=== PATIENT | male | born 1960 | race Caucasian/White ===

== ENCOUNTER 2020-01-02 13:40 | Inpatient (IN) | payer BC ==
[2020-01-02 16:28] LABS: Absolute Lymphocytes (CBC) 0.7 K/uL (0.7-4.9); Basophils % 0.5 % (0-1.3); Hematocrit 42.3 % (39.6-49.0); Lymphocytes % 5.8 % (15.3-44.8); MPV 9.7 fL (7.6-11.3)
[2020-01-02] MEDS ORDERED: MEPERIDINE HCL 50 MG/ML ONE (16:34)
[2020-01-02] MEDS ORDERED: NA CHLORIDE 0.9% 500 ML ONE (16:34)
[2020-01-02 16:47] LABS: Albumin 3.7 g/dL (3.4-5.0); Bilirubin Direct 0.3 mg/dL (0-0.2); Bilirubin Total 1.1 mg/dL (0.2-1.0); Potassium 3.7 mmol/L (3.5-5.1); Protein, Total 7.6 g/dL (6.4-8.2)
--- NOTE | 2020-01-02 16:52 | RAD REPORT ---
EXAM DESCRIPTION: CTAbdomen Pelvis W Contrast - 01/02/2020 4:40 pm CLINICAL HISTORY: Abdominal pain. ABD PAIN COMPARISON: No comparisons TECHNIQUE: Biphasic CT imaging of the abdomen and pelvis was performed with 100 ml non-ionic IV cont rast. All CT scans are performed using dose optimization technique as appropriate and may include automated exposure control or mA/KV adjustment according to patient size. FINDINGS: The lung bases are clear. The liver, spleen, pancreas, adrenal glands and kidneys are within normal limits. No bowel obstruction, free air, free fluid or abscess. There is inflammatory changes surrounding braxton ral diverticula in the left lower quadrant sigmoid colon. This is likely diverticulitis. There is loc alized extraluminal air collection superior to the sigmoid colon measuring 3 x 2 cm, likely related t o diverticular perforation. No abscess is identified. The appendix is normal. Small fat containing um bilical hernia. No evidence of significant lymphadenopathy. No suspicious bony findings. IMPRESSION: Inflammatory changes in the left lower quadrant surrounding the sigmoid colon is most co mpatible with acute diverticulitis. There is localized extraluminal air collection measuring 3 x 2 cm in the pericolonic fat present. No abscess is seen. After appropriate therapy, followup colonoscopy would be advised to exclude the possibility of a mass in this region.
[2020-01-02] MEDS ORDERED: PIPER/TAZO/NS 3.375gm 3.375 GM/100 ML BAG ONE (17:15)
[2020-01-02 17:18] LABS: Blood Morphology Comment NOTED (NOT SEEN); Platelet Estimate ADEQ; Poikilocytosis 1+; Urine White Blood Cell Casts OK
--- NOTE | 2020-01-02 17:19 | ER ---
Nurse's Notes [facility] Name: Can Thompson Age: 59 yrs Sex: Male : 1960 Arrival Date: 01/02/2020 Time: 13:42 Bed 23 Private MD: Jose Peguero E Diagnosis: Diverticulitis of large intestine with perforation and abscess without bleeding-No abscess Presentation: 01/01 14:05 Chief complaint: Patient states: Severe lower back spasms, cramps on lower abdomen more ca1 on LLQ, started yesterday. Reports constipation, N/V. Coronavirus screen: Client denies travel out of the [place] in the last 14 days. At this time, the client does not indicate any symptoms associated with coronavirus-19. Ebola Screen: Patient negative for fever greater than or equal to 101.5 degrees Fahrenheit, and additional compatible Ebola Virus Disease symptoms Patient denies exposure to infectious person. Patient denies travel to an Ebola-affected area in the 21 days before illness onset. No symptoms or risks identified at this time. Initial Sepsis Screen: Does the patient meet any 2 criteria? No. Patient's initial sepsis screen is negative. Does the patient have a suspected source of infection? No. Patient's initial sepsis screen is negative. Risk Assessment: Do you want to hurt yourself or someone else? Patient reports no desire to harm self or others. Onset of symptoms was January 02, 2020. 14:05 Method Of Arrival: Ambulatory ca1 14:05 Acuity: GIUSEPPE 3 ca1 Triage Assessment: 14:08 General: Appears in no apparent distress. comfortable, Behavior is calm, cooperative, ca1 appropriate for age. Musculoskeletal: Circulation, motion, and sensation intact. Historical: - Allergies: 14:08 No Known Allergies; ca1 - Home Meds: 14:08 None [Active]; ca1 - PMHx: 14:08 None; ca1 - PSHx: 14:08 back surgery; ca1 - Immunization history:: Adult Immunizations up to date. - Social history:: Smoking status: Patient denies any tobacco usage or history of. - Family history:: not pertinent. - Hospitalizations: : No recent hospitalization is reported. Screenin:10 Abuse screen: Denies threats or abuse. Denies injuries from another. Nutritional ss screening: No deficits noted. Tuberculosis screening: Never had TB. Fall Risk None identified. Assessment: 16:10 General: Appears in no apparent distress. comfortable, Behavior is calm, cooperative, ss Denies fever, feeling ill, fatigue, chills. Pain: Complains of pain in low back and RLQ, LLQ Pain currently is 4 out of 10 on a pain scale. Quality of pain is described as aching, crampy, Pain began yesterday Is continuous. Neuro: Level of Consciousness is awake, alert, obeys commands, Oriented to person, place, time, situation, Materials Analyst are equal bilaterally Speech is normal, Facial symmetry appears normal. Cardiovascular: Capillary refill < 3 seconds is brisk in bilateral fingers. Respiratory: Airway is patent Respiratory effort is even, unlabored, Respiratory pattern is regular, symmetrical. GI: Patient currently denies diarrhea, nausea, vomiting. : Denies burning with urination, inability to void, urinary frequency. EENT: Nares Oral mucosa is moist. Derm: Skin is intact, is healthy with good turgor, Skin is dry, Skin is pink, warm \T\ dry. normal. Musculoskeletal: Circulation, motion, and sensation intact. Range of motion: intact in all extremities, Swelling absent. 16:31 Reassessment: Pt to CT now. ss 17:30 Reassessment: Patient appears in no apparent distress at this time. Patient and/or ss family updated on plan of care and expected duration. Pain level reassessed. Patient is alert, oriented x 3, equal unlabored respirations, skin warm/dry/pink. 18:18 Reassessment: Patient appears in no apparent distress at this time. Patient and/or ss family updated on plan of care and expected duration. Pain level reassessed. Patient is alert, oriented x 3, equal unlabored respirations, skin warm/dry/pink. report called to JENNY Steen. Vital Signs: 14:05 BP 114 / 72; Pulse 71; Resp 16 S; Temp 98.7(O); Pulse Ox 96% on R/A; Weight 111.13 kg ca1 (R); Height 6 ft. 0 in. (182.88 cm) (R); 16:49 BP 130 / 75; Pulse 77; Resp 16; Pulse Ox 99% on R/A; ss 14:05 Body Mass Index 33.23 (111.13 kg, 182.88 cm) ca1 ED Course: 13:42 Patient arrived in ED. ag5 13:45 Jose Peguero MD is Private Physician. ag5 14:08 Triage completed. ca1 14:08 Arm band placed on right wrist. ca1 15:50 Fei Newman MD is Attending Physician. rn 16:00 Inserted saline lock: 20 gauge in right antecubital area, using aseptic technique. ss Blood collected. 16:10 Patient has correct armband on for positive identification. Bed in low position. Call ss light in reach. 16:29 Gina Milner, JENNY is Primary Nurse. ss 16:41 CT Abd/Pelvis - IV Contrast Only In Process Unspecified. EDMS 17:16 Devin Weems MD is Hospitalizing Provider. rn 17:30 No provider procedures requiring assistance completed. Patient did not have IV access ss during this emergency room visit. Administered Medications: 16:29 Drug: Demerol 25 mg Route: IVP; Site: right antecubital; ss 17:03 Follow up: Response: No adverse reaction ss 16:29 Drug: NS 0.9% 500 ml Route: IV; Rate: bolus; Site: right antecubital; ss 17:30 Follow up: IV Status: Completed infusion ss 17:16 Drug: Zosyn 3.375 grams Route: IVPB; Infused Over: 60 mins; Site: right antecubital; ss 18:20 Follow up: IV Status: Completed infusion ss Outcome: 17:17 Decision to Hospitalize by Provider. rn 17:30 Admitted to Med/surg accompanied by nurse, via wheelchair, room 231, with chart, Report ss called to JENNY Steen 17:30 Condition: good 17:30 Instructed on the need for admit, Demonstrated understanding of instructions. 18:24 Patient left the ED. ss Signatures: Dispatcher [employer] EDMS Fei Newman MD MD rn Smirch, Shelby, RN RN ss Joanna Balnco RN RN [facility] Mery Maloney [facility]
--- NOTE | 2020-01-02 17:19 | EDPHYS ---
Physician Documentation [facility] Name: Can Thompson Age: 59 yrs Sex: Male : 1960 Arrival Date: 01/02/2020 Time: 13:42 Bed 23 Private MD: Jose Peguero E ED Physician Fei Newman HPI: 01/01 17:10 This 59 yrs old Male presents to ER via Ambulatory with complaints of Back rn Pain, Abdominal Cramping, Nausea/Vomiting/Diarrhea, Body Aches. 17:11 The patient presents with abdominal pain in the left lower quadrant. rn 17:12 Onset: The symptoms/episode began/occurred yesterday. The symptoms do not radiate. rn Associated signs and symptoms: Pertinent positives: constipation, nausea, Pertinent negatives: fever. The symptoms are described as achy, crampy. Modifying factors: The symptoms are alleviated by nothing, the symptoms are aggravated by touching the area. Severity of pain: At its worst the pain was moderate in the emergency department the pain is unchanged. The patient has not experienced similar symptoms in the past. The patient has not recently seen a physician. Reports lower abd pain, cramping, nausea, constipation, began yesterday, no trauma. . Historical: - Allergies: 14:08 No Known Allergies; ca1 - Home Meds: 14:08 None [Active]; ca1 - PMHx: 14:08 None; ca1 - PSHx: 14:08 back surgery; ca1 - Immunization history:: Adult Immunizations up to date. - Social history:: Smoking status: Patient denies any tobacco usage or history of. - Family history:: not pertinent. - Hospitalizations: : No recent hospitalization is reported. ROS: 17:12 Constitutional: Negative for fever, chills, and weight loss, Eyes: Negative for injury, rn pain, redness, and discharge, Cardiovascular: Negative for chest pain, palpitations, and edema, Respiratory: Negative for shortness of breath, cough, wheezing, and pleuritic chest pain, Abdomen/GI: + abd pain, nausea, constipation MS/Extremity: Negative for injury and deformity, Skin: Negative for injury, rash, and discoloration, Neuro: Negative for headache, weakness, numbness, tingling, and seizure. Exam: 17:14 Constitutional: This is a well developed, well nourished patient who is awake, alert, rn appears uncomfortable Head/Face: Normocephalic, atraumatic. ENT: MMM Cardiovascular: Regular rate and rhythm. No pulse deficits. Respiratory: No increased work of breathing, no retractions or nasal flaring. Abdomen/GI: soft, + mild LLQ tenderness, no rebound, + small periumbilical hernia that is easily reducible, no skin color change MS/ Extremity: Pulses equal, no cyanosis. Neurovascular intact. Full, normal range of motion. Equal circumference. Neuro: Awake and alert, GCS 15 Vital Signs: 14:05 BP 114 / 72; Pulse 71; Resp 16 S; Temp 98.7(O); Pulse Ox 96% on R/A; Weight 111.13 kg ca1 (R); Height 6 ft. 0 in. (182.88 cm) (R); 16:49 BP 130 / 75; Pulse 77; Resp 16; Pulse Ox 99% on R/A; ss 14:05 Body Mass Index 33.23 (111.13 kg, 182.88 cm) ca1 MDM: 15:50 Patient medically screened. rn 17:14 Differential diagnosis: appendicitis, bowel obstruction, diverticulitis, non-specific rn abd pain. Data reviewed: vital signs, nurses notes, lab test result(s), radiologic studies, CT scan, and as a result, I will admit patient. Counseling: I had a detailed discussion with the patient and/or guardian regarding: the historical points, exam findings, and any diagnostic results supporting the discharge/admit diagnosis, lab results, radiology results, the need for further work-up and treatment in the hospital. Response to treatment: the patient's symptoms have mildly improved after treatment. Admission orders: after a detailed discussion of the patient's condition and case, the admit orders are written by me. ED course: Consulted with Saskia Mckeon regarding ct finding of diverticulitis with extraluminal air in fat, recommends hospitalist admission and abx, NPO.. 01/01 15:57 Order name: Basic Metabolic Panel; Complete Time: 16:48 rn 01/01 15:57 Order name: CBC with Diff; Complete Time: 17:50 rn 01/01 15:57 Order name: Hepatic Function; Complete Time: 16:48 rn 01/01 15:57 Order name: Lipase; Complete Time: 16:48 rn 01/01 16:51 Order name: CREATININE WHOLE BLOOD; Complete Time: 17:00 EDVT 01/01 17:18 Order name: CBC Smear Scan; Complete Time: 17:50 EDMS 01/01 17:32 Order name: Urinalysis EDVT 01/01 17:32 Order name: CBC with Automated Diff EDVT 01/01 17:32 Order name: CBC with Automated Diff EDVT 01/01 17:32 Order name: Comprehensive Metabolic Panel EDVT 01/01 17:32 Order name: Comprehensive Metabolic Panel EDVT 01/01 17:32 Order name: Magnesium EDVT 01/01 17:32 Order name: Magnesium EDVT 01/01 17:32 Order name: Phosphorus EDVT 01/01 15:57 Order name: IV Saline Lock; Complete Time: 16:20 rn 01/01 15:57 Order name: Labs collected and sent; Complete Time: 16:20 rn 01/01 15:57 Order name: CT Abd/Pelvis - IV Contrast Only; Complete Time: 17:00 rn 01/01 17:32 Order name: CONS Physician Consult EDVT 01/01 17:32 Order name: NPO EDVT 01/01 17:32 Order name: Phosphorus EDVT Administered Medications: 16:29 Drug: Demerol 25 mg Route: IVP; Site: right antecubital; ss 17:03 Follow up: Response: No adverse reaction ss 16:29 Drug: NS 0.9% 500 ml Route: IV; Rate: bolus; Site: right antecubital; ss 17:30 Follow up: IV Status: Completed infusion ss 17:16 Drug: Zosyn 3.375 grams Route: IVPB; Infused Over: 60 mins; Site: right antecubital; ss 18:20 Follow up: IV Status: Completed infusion ss Disposition: 01/02/20 17:17 Hospitalization ordered by Devin Weems for Inpatient Admission. Preliminary diagnosis is Diverticulitis of large intestine with perforation and abscess without bleeding - No abscess. - Bed requested for Telemetry/MedSurg (Inpatient). - Status is Inpatient Admission. ss - Condition is Stable. - Problem is new. - Symptoms have improved. Signatures: Dispatcher [facility] Martha Garcia RN RN dw Nieto, Roman, MD MD rn Smirch, Shelby, RN RN ss Attema, Lee, DOOR TO DOOR SELLING DISTRIBUTOR-C DOOR TO DOOR SELLING DISTRIBUTOR-Cla1 Joanna Blanco, RN RN ca1 Corrections: (The following items were deleted from the chart) 17:14 17:12 Constitutional: Negative for fever, chills, and weight loss, Eyes: Negative for rn injury, pain, redness, and discharge, Cardiovascular: Negative for chest pain, palpitations, and edema, Respiratory: Negative for shortness of breath, cough, wheezing, and pleuritic chest pain, Abdomen/GI: + abd pain, nausea, constipation MS/Extremity: Negative for injury and deformity, Skin: Negative for injury, rash, and discoloration, Neuro: Negative for headache, weakness, numbness, tingling, and seizure, rn 17:57 17:17 Hospitalization Ordered by Devin Weems MD for Inpatient Admission. Preliminary dw diagnosis is Diverticulitis of large intestine with perforation and abscess without bleeding - No abscess. Bed requested for Telemetry/MedSurg (Inpatient). Status is Inpatient Admission. Condition is Stable. Problem is new. Symptoms have improved. rn 18:24 17:57 01/02/2020 17:17 Hospitalization Ordered by Devin Weems MD for Inpatient ss Admission. Preliminary diagnosis is Diverticulitis of large intestine with perforation and abscess without bleeding - No abscess. Bed requested for Telemetry/MedSurg (Inpatient). Status is Inpatient Admission. Condition is Stable. Problem is new. Symptoms have improved. dw
[2020-01-02] MEDS ORDERED: ACETAMINOPHEN 500 MG TAB PO PRN (17:29)
[2020-01-02] MEDS ORDERED: SODIUM CHLORIDE 0.9% 10ML INJ IV PRN (17:31)
--- NOTE | 2020-01-02 17:39 | P.HP ---
Certification for Inpatient Patient admitted to: Inpatient With expected LOS: >2 Midnights Practitioner: I am a practitioner with admitting privileges, knowledge of patient current condition, hospital course, and medical plan of care. 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 Denies any fever or chills. Abdominal pain is located lower abdomen cramping type of pain. Associated with nausea and occasional diarrhea. Did not have any history of diverticulitis in the past. Never had colonoscopy. Patient was assessed in the ER and was found to have diverticulitis with microperforation and was admitted for further management . . Home medications list reviewed: Yes - Past Medical/Surgical History Past Medical History: Reviewed- Non-Contributory Past Surgical History: Reviewed- Non-Contributory - Family History Family History: Reviewed- Non-Contributory - Social History Smoking Status: Never smoker Review of Systems 10-point ROS is otherwise unremarkable Physical Examination - Vital Signs Temperature: 98.2 F Blood Pressure: 146/76 Pulse: 76 Respirations: 18 - Physical Exam General: Alert, In no apparent distress, Obese HEENT: Atraumatic, Normocephalic Neck: Supple Respiratory: Clear to auscultation bilaterally Cardiovascular: Regular rate/rhythm, Normal S1 S2 Capillary refill: <2 Seconds Gastrointestinal: W/out hepatosplenomegaly, Tenderness Musculoskeletal: No clubbing, No swelling Integumentary: No rashes, No breakdown Neurological: Normal speech, Normal strength at 5/5 x4 extr Lymphatics: No axilla or inguinal lymphadenopathy - Studies Laboratory Data (last 24 hrs) 01/02/20 16:18: WBC 12.3 H, Hgb 14.2, Hct 42.3, Plt Count 218 01/02/20 16:18: Sodium 139, Potassium 3.7, BUN 20 H, Creatinine 1.16, Glucose 115 H, Total Bilirubin 1.1 H, AST 35, ALT 42, Alkaline Phosphatase 99, Lipase 72 L Assessment and Plan - Problems (Diagnosis) (1) Diverticulitis of colon with perforation Current Visit: Yes Status: Acute (2) Leukocytosis Current Visit: Yes Status: Acute (3) Acute renal insufficiency Current Visit: Yes Status: Acute - Plan Diverticulitis with microperforation Leukocytosis Acute renal insufficiency Plan Monitor closely under telemetry start on pain medication and IV antibiotics will get cultures Surgery consult with Dr. Mckeon Keep NPO for now IV hydration will monitor renal parameters Monitor CBC daily GI/DVT prophylaxis Advanced directives full code - Advance Directives Does patient have a Living Will: Yes Does patient have a Durable POA for Healthcare: Yes Time Spent Managing Pts Care (In Minutes): 45
[2020-01-02] MEDS: ENOXAPARIN 40 MG/0.4 ML SQ SCH (18:31)
[2020-01-02] MEDS: D5 0.45 NS 1,000 ML IV SCH (18:32)
[2020-01-02 19:29] VITALS: BMI 33.9
[2020-01-02] MEDS: MORPHINE 2 MG/ML SYR IV PRN (21:01)
[2020-01-02] MEDS: PANTOPRAZOLE 40 MG INJ IVP SCH (21:01)
[2020-01-02 22:45] LABS: Urine Appearance CLEAR; Urine Bilirubin NEGATIVE (NEG); Urine Blood NEGATIVE (NEG); Urine Color YELLOW; Urine Glucose NEGATIVE (NEG); Urine Protein TRACE (NEG); Urine Specific Gravity >=1.030 (1.005-1.030); Urine pH 5.5 (5.0-7.0)
[2020-01-02 22:47] LABS: Urine Microscopic Reflex ORDER UMIC
[2020-01-02 23:11] LABS: Urine Amorphous Sediment 2+ /HPF (NONE SEEN); Urine Bacteria <20 /HPF (NONE SEEN); Urine Culture Reflex Order NOT NEEDED; Urine RBC NONE SEEN /HPF (NONE SEEN)
[2020-01-03] MEDS ORDERED: PIPER/TAZO/NS 3.375gm 3.375 GM/100 ML BAG IVPB SCH (01:00)
[2020-01-03] MEDS ORDERED: PIPER/TAZO/NS 3.375gm 3.375 GM/100 ML BAG ONE (01:28)
[2020-01-03] MEDS: D5 0.45 NS 1,000 ML IV SCH ×2 (05:20→13:53)
[2020-01-03 06:40] LABS: Absolute Lymphocytes (CBC) 0.9 K/uL (0.7-4.9); Basophils % 0.4 % (0-1.3); Hematocrit 37.2 % (39.6-49.0); Lymphocytes % 8.1 % (15.3-44.8); RBC Red Blood Cell Count 4.35 M/uL (4.33-5.43)
[2020-01-03 06:44] LABS: Albumin 3.1 g/dL (3.4-5.0); Magnesium 2.2 mg/dL (1.8-2.4); Phosphorus 2.3 mg/dL (2.5-4.9); Potassium 3.5 mmol/L (3.5-5.1); Protein, Total 6.6 g/dL (6.4-8.2)
[2020-01-03] MEDS: PIPER/TAZO/NS 3.375gm 3.375 GM/100 ML BAG IVPB SCH ×2 (08:24→17:13)
[2020-01-03] MEDS: ENOXAPARIN 40 MG/0.4 ML SQ SCH (08:25)
[2020-01-03] MEDS: PANTOPRAZOLE 40 MG INJ IVP SCH ×2 (08:26→21:23)
[2020-01-03] MEDS ORDERED: POTASSIUM PHOS IN 0.9 % NACL 15 MMOL/250 ML BAG IV ONE (09:00)
--- NOTE | 2020-01-03 11:12 | P.PN ---
Subjective Date of Service: 01/03/20 Chief Complaint: Abdominal pain Subjective: No new changes, Other (Pain is still present but better than yesterday Denies any nausea vomiting Afebrile) Review of Systems 10-point ROS is otherwise unremarkable Physical Examination - Vital Signs Temperature: 98 F Blood Pressure: 114/59 Pulse: 81 Respirations: 16 Pulse Ox (%): 95 - Physical Exam General: Alert, In no apparent distress, Oriented x3 HEENT: Atraumatic, Normocephalic Neck: Supple, 2+ carotid pulse no bruit Respiratory: Clear to auscultation bilaterally, Normal air movement Cardiovascular: Regular rate/rhythm, Normal S1 S2 Capillary refill: <2 Seconds Gastrointestinal: Non-distended, Other (Lower Abdominal Tenderness +), Tenderness Musculoskeletal: No clubbing, No swelling Integumentary: No rashes Neurological: Normal speech, Normal strength at 5/5 x4 extr Lymphatics: No axilla or inguinal lymphadenopathy - Studies Laboratory Data (last 24 hrs) 01/02/20 16:18: WBC 12.3 H, Hgb 14.2, Hct 42.3, Plt Count 218 01/02/20 16:18: Sodium 139, Potassium 3.7, BUN 20 H, Creatinine 1.16, Glucose 115 H, Total Bilirubin 1.1 H, AST 35, ALT 42, Alkaline Phosphatase 99, Lipase 72 L Assessment & Plan - Problems (Diagnosis) (1) Diverticulitis of colon with perforation Current Visit: Yes Status: Acute (2) Leukocytosis Current Visit: Yes Status: Acute (3) Acute renal insufficiency Current Visit: Yes Status: Acute Physician Review Additional Text: Diverticulitis with microperforation Leukocytosis Acute renal insufficiency Plan Monitor closely under telemetry Pain controlled well Continue IV antibiotics Cultures pending Surgery consult with Dr. Mckeon Keep NPO for now IV hydration monitor renal parameters Monitor CBC daily GI/DVT prophylaxis Advanced directives full code Disposition : Monitor closely Awaiting surgical input Possible Dc home in a.m. Need outpatient follow up GI for colonoscopy down the line Discuss about diet modification Time Spent Managing Pts Care (In Minutes): 42
--- NOTE | 2020-01-03 12:10 | CON ---
Date of Consultation: 01/03/2020 Reason For Service: Diverticulitis with microperforation. History Of Present Illness: This is a case of a 59-year-old patient comes to us with the left lower quadrant pain associated with nausea and vomiting and diarrhea since 1 day of duration. It got worse to the point he came to the ER. When he was seen in the ER, he was diagnosed with diverticulitis an d microperforation. No free air in the abdomen, but there were pockets of air near the colon. He do es not remember any dysuria, hematuria, hematochezia, melena. He denies any recent traveling out of the country. Denies any family member sick at home. The patient has no previous colonoscopies. Review of Systems: Ten points otherwise unremarkable. Medical History: None. Family History: None. Social History: He does not smoke. He does not drink alcohol. Family History: Noncontributory. Physical Examination: General: The patient is awake, alert. HEENT: Pupils are equal and reactive, anicteric. Neck: Supple. Chest: Clear. Abdomen: Soft and depressible. Left lower quadrant tenderness. Rectal/genitalia: Deferred. Extremities: Good capillary refill. Laboratory Data: Blood work shows WBC count of 11, hemoglobin of 12.9, platelets of 188, potassium 3 .5, and glucose 129. CAT scan of the abdomen and pelvis interpreted by Dr. Sandoval as inflammatory chanel ges in the left lower quadrant surrounding the sigmoid colon, most compatible with acute diverticulit is. There is localized extraluminal air collection measuring about 3 x 2 cm in the pericolonic fat. No abscess seen. Assessment And Plan: This is a 59-year-old patient with apparently some inflammation of the colon, m ost likely diverticulitis by CAT scan with a local fluid collection. No free air in the diaphragm. The patient will be n.p.o., IV fluid. He understand and fully explained today for about the last daisy r the pros and cons. We can go for surgery right now, do a bowel resection, colostomy. Obviously, shameka velasquez does not like that route, but he understands that it might happen any moment. If not that route, en we are going to have to do a treatment with IV antibiotics and bowel rest for the next 5-7 days. We are going to get Infectious Disease to see how long we are going to have to utilize this route. Shameka velasquez understands that even though he is doing well during this condition and may not need surgery, he st ill has to have his colonoscopy in the future. He most likely will have to have his segment removed electively if we do not have to do it emergently. He understands the gravity of the situation and he will cooperate with absolute bowel rest. MICHELLE/MENDOZA Voice ID: [id number] Report ID: [id number]
[2020-01-03] MEDS: MORPHINE 2 MG/ML SYR IV PRN (21:24)
[2020-01-04] MEDS: PIPER/TAZO/NS 3.375gm 3.375 GM/100 ML BAG IVPB SCH ×3 (00:42→17:02)
[2020-01-04] MEDS: D5 0.45 NS 1,000 ML IV SCH ×4 (06:04→21:26)
[2020-01-04 06:12] LABS: Phosphorus 2.5 mg/dL (2.5-4.9); Potassium 3.4 mmol/L (3.5-5.1)
[2020-01-04] MEDS ORDERED: POTASSIUM PHOS IN 0.9 % NACL 15 MMOL/250 ML BAG IV ONE (09:00)
[2020-01-04] MEDS ORDERED: KCL 20 MEQ/100 mL IVPB 20 MEQ/100 ML BAG IV SCH (09:00)
--- NOTE | 2020-01-04 09:03 | RAD REPORT ---
EXAM DESCRIPTION: RAD - Abdomen W Erect - 01/04/2020 8:49 am CLINICAL HISTORY: diverticulitis COMPARISON: Abdomen Pelvis W Contrast dated 01/02/2020 TECHNIQUE: Supine and upright views of the abdomen were obtained. FINDINGS: No distant free air seen. No pneumatosis. No dilated large or small bowel identified. CT i maging showed small extraluminal air collection in the left lower quadrant. This collection is not cl early distinguishable from air in bowel. No evidence for an enlarging intraabdominal free air collect ion. Phleboliths are identified. IMPRESSION: No distant free air seen. No evidence for enlarging extraluminal air collection in the left lower quadrant.
--- NOTE | 2020-01-04 09:44 | PN ---
Date of Progress Note: 01/04/2020 Reason For Service: Diverticulitis with microperforation. Subjective: Patient feels good. No shortness of breath. No chest pain. No fever. He feels better today. Objective: Abdomen: With no peritonitis. Laboratory Data: Blood work shows WBC count of 11, hemoglobin of 12.9 and chloride is 108. Abdomina l x-ray has been done as we speak at this moment. We do not have the official result yet. The reaso n we do an x-ray is to make sure there is no free air under the diaphragm. Plan: Continue with antibiotics. Continue bowel rest. ID consult. MICHELLE/MENDOZA Voice ID: [id number] Report ID: [id number]
[2020-01-04] MEDS: PANTOPRAZOLE 40 MG INJ IVP SCH ×2 (09:51→21:18)
[2020-01-04] MEDS: ENOXAPARIN 40 MG/0.4 ML SQ SCH (09:51)
--- NOTE | 2020-01-04 10:28 | P.CNS ---
Date of Consult: 01/04/20 Subjective: Patient is a 59-year-old male who presents with abdominal pain, nausea, vomiting and diarrhea that started this past Thursday. Patient reports that he has not had a bowel movement a few days so he took Ex-Lax and his abdominal pain and nausea worsened. Patient found to have diverticulitis which I have been consulted for. Past medical/surgical history: Noncontributory Family history: Noncontributory in Social history: Reports dips tobacco daily Allergies No Known Allergies Allergy (Verified 01/02/20 19:39) Active Medications Acetaminophen (Tylenol -Extra Strength) 500 mg PO Q4HP PRN PRN Reason: TEMP > 100' F Stop: 02/01/20 17:30 Enoxaparin Sodium (Lovenox 40 Mg Inj) 40 mg SQ DAILY SEA Stop: 02/01/20 18:01 Last Admin: 01/04/20 09:51 Dose: 40 mg Documented by: Dextrose/Sodium Chloride (Dextrose 5% O.45% Saline) 1,000 mls @ 100 mls/hr IV .Q10H SEA Stop: 02/01/20 18:01 Last Admin: 01/04/20 06:04 Dose: 1,000 mls Documented by: Piperacillin Sod/Tazobactam Sod (Zosyn 3.375 Gm/100 Ml Ns Ivpb) 3.375 gm in 100 mls @ 100 mls/hr IVPB Q8HR SEA; Protocol Stop: 02/02/20 09:01 Last Admin: 01/04/20 09:50 Dose: 100 mls Documented by: Potassium Phosphate (Potassium Phos 15 Mmol/250 Ml Ns) 15 mmol in 250 mls @ 62.5 mls/hr IV 1X ONE; Protocol Stop: 01/04/20 12:59 Last Admin: 01/04/20 09:50 Dose: 250 mls Documented by: Potassium Chloride (Kcl 20 Meq/100 Ml Ivpb (Premix)) 20 meq in 100 mls @ 50 mls/hr IV 1X SEA; Protocol Stop: 01/04/20 10:59 Last Admin: 01/04/20 09:50 Dose: 100 mls Documented by: Morphine Sulfate (Morphine Sulfate) 2 mg IV Q4H PRN PRN Reason: Pain scale 5-7 (Moderate) Stop: 02/01/20 17:32 Last Admin: 01/03/20 21:24 Dose: 2 mg Documented by: Pantoprazole Sodium (Protonix Inj) 40 mg IVP Q12HR SEA; Protocol Stop: 02/01/20 21:01 Last Admin: 01/04/20 09:51 Dose: 40 mg Documented by: Sodium Chloride (Normal Saline Flush) 10 ml IV BID SEA Stop: 02/01/20 21:01 Last Admin: 01/04/20 09:51 Dose: 10 ml Documented by: Sodium Chloride (Sodium Chloride 10 Ml Inj) 10 ml IV UD PRN PRN Reason: Diluant Stop: 02/01/20 17:32 ROS: CV: Denies chest pain RESP: Denies shortness of breath and cough : Denies dysuria GI: Denies nausea, vomiting and diarrhea, reports abdominal pain improving Objective: Temp Pulse Resp BP Pulse Ox 97.0 F 75 18 128/69 97 01/04/20 08:00 01/04/20 08:00 01/04/20 08:00 01/04/20 08:00 01/04/20 08:00 Labs: Sodium 139, potassium 3.4, BUN 11, creatinine 0.93, albumin 3.1, they BC 11, hemoglobin 12.9, hematocrit 37.[address] 01/01: EXAM DESCRIPTION: CTAbdomen Pelvis W Contrast - 01/02/2020 4:40 pm CLINICAL HISTORY: Abdominal pain. ABD PAIN COMPARISON: No comparisons TECHNIQUE: Biphasic CT imaging of the abdomen and pelvis was performed with 100 ml non-ionic IV contrast. All CT scans are performed using dose optimization technique as appropriate and may include automated exposure control or mA/KV adjustment according to patient size. FINDINGS: The lung bases are clear. The liver, spleen, pancreas, adrenal glands and kidneys are within normal limits. No bowel obstruction, free air, free fluid or abscess. There is inflammatory changes surrounding several diverticula in the left lower quadrant sigmoid colon. This is likely diverticulitis. There is localized extraluminal air collection superior to the sigmoid colon measuring 3 x 2 cm, likely related to diverticular perforation. No abscess is identified. The appendix is normal. Small fat containing umbilical hernia. No evidence of significant lymphadenopathy. No suspicious bony findings. IMPRESSION: Inflammatory changes in the left lower quadrant surrounding the sigmoid colon is most compatible with acute diverticulitis. There is localized extraluminal air collection measuring 3 x 2 cm in the pericolonic fat present. No abscess is seen. After appropriate therapy, followup colonoscopy would be advised to exclude the possibility of a mass in this region. ROS: General: Awake, alert, oriented CV: S1,S2 RESP: Good breath sounds ABD: Distended, nontender, bowel sounds present Extremities: no edema Assessment and plan: Leukocytosis Diverticulitis, Zosyn day 2 Will add Flagyl Recommend to continue Zosyn and Flagyl for total of 10 days Will continue to monitor Thank you for consult Patient discussed with Dr. Nunez
--- NOTE | 2020-01-04 11:56 | P.PN ---
Subjective Date of Service: 01/04/20 Chief Complaint: Abdominal pain Subjective: No new changes, Other (Still having lower abdominal pain no nausea vomiting Denies any fever or chills) Review of Systems 10-point ROS is otherwise unremarkable Physical Examination - Vital Signs Temperature: 97.0 F Blood Pressure: 128/69 Pulse: 75 Respirations: 18 Pulse Ox (%): 97 - Physical Exam General: Alert, In no apparent distress, Oriented x3, Obese HEENT: Atraumatic, Normocephalic Neck: Supple Respiratory: Clear to auscultation bilaterally, Normal air movement Cardiovascular: Normal pulses, Regular rate/rhythm, Normal S1 S2 Capillary refill: <2 Seconds Gastrointestinal: Soft and benign, W/out hepatosplenomegaly Musculoskeletal: No clubbing, No swelling Integumentary: No rashes Neurological: Normal speech, Normal strength at 5/5 x4 extr Lymphatics: No axilla or inguinal lymphadenopathy Assessment & Plan - Problems (Diagnosis) (1) Diverticulitis of colon with perforation Current Visit: Yes Status: Acute (2) Leukocytosis Current Visit: Yes Status: Acute (3) Acute renal insufficiency Current Visit: Yes Status: Acute Physician Review Additional Text: Diverticulitis with microperforation Leukocytosis Acute renal insufficiency Hypokalemia Plan Monitor closely under telemetry Pain controlled well Continue IV antibiotics ID consulted Cultures pending Appreciate Surgery consult with Dr. Mckeon Keep NPO for now IV hydration monitor renal parameters Replace electrolytes Monitor CBC daily GI/DVT prophylaxis Advanced directives full code Disposition : Monitor closely Awaiting surgical input Need outpatient follow up GI for colonoscopy down the line Discuss about diet modification Time Spent Managing Pts Care (In Minutes): 42
[2020-01-04] MEDS: METRONIDAZOLE 500mg IVPB 500 MG/100 ML BAG IV SCH (17:02)
[2020-01-05] MEDS: METRONIDAZOLE 500mg IVPB 500 MG/100 ML BAG IV SCH ×3 (01:09→16:31)
[2020-01-05] MEDS: PIPER/TAZO/NS 3.375gm 3.375 GM/100 ML BAG IVPB SCH ×3 (01:09→16:29)
[2020-01-05] MEDS: D5 0.45 NS 1,000 ML IV SCH ×2 (06:00→20:28)
[2020-01-05 06:28] LABS: BUN Blood Urea Nitrogen 11 mg/dL (7-18); Bicarbonate 24 mmol/L (21-32); Glucose Level 91 mg/dL (74-106); Magnesium 2.4 mg/dL (1.8-2.4); Phosphorus 3.2 mg/dL (2.5-4.9); Potassium 3.5 mmol/L (3.5-5.1); Sodium Level 141 mmol/L (136-145)
[2020-01-05] MEDS: ENOXAPARIN 40 MG/0.4 ML SQ SCH (09:00)
[2020-01-05] MEDS: PANTOPRAZOLE 40 MG INJ IVP SCH ×2 (09:00→20:28)
[2020-01-05] MEDS ORDERED: POTASSIUM CL SA 10 MEQ TAB PO ONE (09:00)
[2020-01-05 09:13] LABS: Absolute Lymphocytes (CBC) 1.1 K/uL (0.7-4.9); Basophils % 0.6 % (0-1.3); Hematocrit 41.1 % (39.6-49.0); Lymphocytes % 16.8 % (15.3-44.8); MPV 9.7 fL (7.6-11.3); RBC Red Blood Cell Count 4.88 M/uL (4.33-5.43)
[2020-01-05] MEDS ORDERED: KCL 20 MEQ/100 mL IVPB 20 MEQ/100 ML BAG IV SCH (10:00)
--- NOTE | 2020-01-05 10:53 | P.PN ---
Subjective Date of Service: 01/05/20 Chief Complaint: Abdominal pain Subjective: No new changes, Improving, Other (Had a bowel movement Ambulating well) Review of Systems 10-point ROS is otherwise unremarkable Physical Examination - Vital Signs Temperature: 97.1 F Blood Pressure: 126/75 Pulse: 61 Respirations: 17 Pulse Ox (%): 95 - Physical Exam General: Alert, In no apparent distress, Obese HEENT: Atraumatic, Normocephalic Neck: Supple Respiratory: Clear to auscultation bilaterally, Normal air movement Cardiovascular: Regular rate/rhythm, Normal S1 S2 Capillary refill: <2 Seconds Gastrointestinal: Soft and benign, Other (Tenderness improved ,BS + ) Musculoskeletal: No clubbing, No swelling Integumentary: No rashes, No breakdown Neurological: Normal speech, Normal strength at 5/5 x4 extr Lymphatics: No axilla or inguinal lymphadenopathy Assessment & Plan - Problems (Diagnosis) (1) Diverticulitis of colon with perforation Current Visit: Yes Status: Acute (2) Leukocytosis Current Visit: Yes Status: Acute (3) Acute renal insufficiency Current Visit: Yes Status: Acute Physician Review Additional Text: Diverticulitis with perforation Leukocytosis Acute renal insufficiency Hypokalemia Plan Monitor closely under telemetry Pain controlled well Continue IV antibiotics ID consult appreciated Cultures negative sofar Appreciate Surgery consult with Dr. Mckeon Start on clear liquid diet IV hydration monitor renal parameters Replace electrolytes Leukocytosis normalized Monitor CBC daily GI/DVT prophylaxis Advanced directives full code Disposition : Monitor closely Continue IV antibiotics for now Need outpatient follow up GI for colonoscopy down the line Discuss about diet modification Time Spent Managing Pts Care (In Minutes): 43
--- NOTE | 2020-01-05 13:31 | P.PN ---
Date of Service: 01/05/20 Subjective: Patient is a 59-year-old male who presents with abdominal pain, nausea, vomiting and diarrhea that started this past Thursday. Patient reports that he has not had a bowel movement a few days so he took Ex-Lax and his abdominal pain and nausea worsened. Patient found to have diverticulitis which I have been consulted for. Past medical/surgical history: Noncontributory Family history: Noncontributory in Social history: Reports dips tobacco daily Allergies No Known Allergies Allergy (Verified 01/02/20 19:39) Active Medications Acetaminophen (Tylenol -Extra Strength) 500 mg PO Q4HP PRN PRN Reason: TEMP > 100' F Stop: 02/01/20 17:30 Enoxaparin Sodium (Lovenox 40 Mg Inj) 40 mg SQ DAILY SEA Stop: 02/01/20 18:01 Last Admin: 01/04/20 09:51 Dose: 40 mg Documented by: Dextrose/Sodium Chloride (Dextrose 5% O.45% Saline) 1,000 mls @ 100 mls/hr IV .Q10H SEA Stop: 02/01/20 18:01 Last Admin: 01/04/20 06:04 Dose: 1,000 mls Documented by: Piperacillin Sod/Tazobactam Sod (Zosyn 3.375 Gm/100 Ml Ns Ivpb) 3.375 gm in 100 mls @ 100 mls/hr IVPB Q8HR SEA; Protocol Stop: 02/02/20 09:01 Last Admin: 01/04/20 09:50 Dose: 100 mls Documented by: Potassium Phosphate (Potassium Phos 15 Mmol/250 Ml Ns) 15 mmol in 250 mls @ 62.5 mls/hr IV 1X ONE; Protocol Stop: 01/04/20 12:59 Last Admin: 01/04/20 09:50 Dose: 250 mls Documented by: Potassium Chloride (Kcl 20 Meq/100 Ml Ivpb (Premix)) 20 meq in 100 mls @ 50 mls/hr IV 1X SEA; Protocol Stop: 01/04/20 10:59 Last Admin: 01/04/20 09:50 Dose: 100 mls Documented by: Morphine Sulfate (Morphine Sulfate) 2 mg IV Q4H PRN PRN Reason: Pain scale 5-7 (Moderate) Stop: 02/01/20 17:32 Last Admin: 01/03/20 21:24 Dose: 2 mg Documented by: Pantoprazole Sodium (Protonix Inj) 40 mg IVP Q12HR SEA; Protocol Stop: 02/01/20 21:01 Last Admin: 01/04/20 09:51 Dose: 40 mg Documented by: Sodium Chloride (Normal Saline Flush) 10 ml IV BID SEA Stop: 02/01/20 21:01 Last Admin: 01/04/20 09:51 Dose: 10 ml Documented by: Sodium Chloride (Sodium Chloride 10 Ml Inj) 10 ml IV UD PRN PRN Reason: Diluant Stop: 02/01/20 17:32 ROS: CV: Denies chest pain RESP: Denies shortness of breath and cough : Denies dysuria GI: Denies nausea, vomiting and diarrhea, reports abdominal pain improving Objective: Temp Pulse Resp BP Pulse Ox 97.7 F 64 17 146/79 H 97 01/05/20 12:00 01/05/20 12:00 01/05/20 12:00 01/05/20 12:00 01/05/20 12:00 Labs: Sodium 141, potassium 3.5, BUN 11, creatinine 0.80, albumin 3.1, WBC 6.5, hemoglobin 14.4, hematocrit 41.[address] 01/01: EXAM DESCRIPTION: CTAbdomen Pelvis W Contrast - 01/02/2020 4:40 pm CLINICAL HISTORY: Abdominal pain. ABD PAIN COMPARISON: No comparisons TECHNIQUE: Biphasic CT imaging of the abdomen and pelvis was performed with 100 ml non-ionic IV contrast. All CT scans are performed using dose optimization technique as appropriate and may include automated exposure control or mA/KV adjustment according to patient size. FINDINGS: The lung bases are clear. The liver, spleen, pancreas, adrenal glands and kidneys are within normal limits. No bowel obstruction, free air, free fluid or abscess. There is inflammatory changes surrounding several diverticula in the left lower quadrant sigmoid colon. This is likely diverticulitis. There is localized extraluminal air collection superior to the sigmoid colon measuring 3 x 2 cm, likely related to diverticular perforation. No abscess is identified. The appendix is normal. Small fat containing umbilical hernia. No evidence of significant lymphadenopathy. No suspicious bony findings. IMPRESSION: Inflammatory changes in the left lower quadrant surrounding the sigmoid colon is most compatible with acute diverticulitis. There is localized extraluminal air collection measuring 3 x 2 cm in the pericolonic fat present. No abscess is seen. After appropriate therapy, followup colonoscopy would be advised to exclude the possibility of a mass in this region. ROS: General: Awake, alert, oriented CV: S1,S2 RESP: Good breath sounds ABD: Distended, nontender, bowel sounds present Extremities: no edema Assessment and plan: Leukocytosis improving Diverticulitis, Zosyn day 3 and Flagyl day 2 Recommend to continue Zosyn and Flagyl for total of 10 days Will continue to monitor Patient discussed with Dr. Nunez
[2020-01-06] MEDS: METRONIDAZOLE 500mg IVPB 500 MG/100 ML BAG IV SCH ×3 (00:03→16:38)
[2020-01-06] MEDS: PIPER/TAZO/NS 3.375gm 3.375 GM/100 ML BAG IVPB SCH ×3 (00:41→17:30)
[2020-01-06] MEDS: D5 0.45 NS 1,000 ML IV SCH ×2 (06:56→18:48)
[2020-01-06] MEDS: PANTOPRAZOLE 40 MG INJ IVP SCH ×2 (08:54→21:29)
[2020-01-06] MEDS: ENOXAPARIN 40 MG/0.4 ML SQ SCH (08:54)
--- NOTE | 2020-01-06 08:57 | P.PN ---
Date of Service: 01/06/20 Subjective: Patient is a 59-year-old male who presents with abdominal pain, nausea, vomiting and diarrhea that started this past Thursday. Patient reports that he has not had a bowel movement a few days so he took Ex-Lax and his abdominal pain and nausea worsened. Patient found to have diverticulitis which I have been consulted for. Patient examined at bedside. Tolerating clear liquid diet. Denies nausea, pain and fever. Objective: Temp Pulse Resp BP Pulse Ox 98.2 F 57 16 131/73 96 01/06/20 04:00 01/06/20 04:00 01/06/20 04:00 01/06/20 04:00 01/06/20 04:[address] 01/01: EXAM DESCRIPTION: CTAbdomen Pelvis W Contrast - 01/02/2020 4:40 pm CLINICAL HISTORY: Abdominal pain. ABD PAIN COMPARISON: No comparisons TECHNIQUE: Biphasic CT imaging of the abdomen and pelvis was performed with 100 ml non-ionic IV contrast. All CT scans are performed using dose optimization technique as appropriate and may include automated exposure control or mA/KV adjustment according to patient size. FINDINGS: The lung bases are clear. The liver, spleen, pancreas, adrenal glands and kidneys are within normal limits. No bowel obstruction, free air, free fluid or abscess. There is inflammatory changes surrounding several diverticula in the left lower quadrant sigmoid co james. This is likely diverticulitis. There is localized extraluminal air collection superior to the sigmoid colon measuring 3 x 2 cm, likely related to diverticular perforation. No abscess is identified. The appendix is normal. Small fat containing umbilical hernia. No evidence of significant lymphadenopathy. No suspicious bony findings. IMPRESSION: Inflammatory changes in the left lower quadrant surrounding the sigmoid colon is most compatible with acute diverticulitis. There is localized extraluminal air collection measuring 3 x 2 cm in the pericolonic fat present. No abscess is seen. After appropriate therapy, followup colonoscopy would be advised to exclude the possibility of a mass in this region. ROS: General: Awake, alert, oriented CV: S1,S2 RESP: Good breath sounds ABD: Distended, nontender, bowel sounds present Extremities: no edema Assessment and plan: Leukocytosis improving Diverticulitis, Zosyn day 4 and Flagyl day 3 Recommend to continue Zosyn and Flagyl for total of 10 days Will continue to monitor Patient discussed with Dr. Nunez
[2020-01-06 09:06] LABS: Potassium 3.7 mmol/L (3.5-5.1)
--- NOTE | 2020-01-06 13:44 | P.PN ---
Subjective Date of Service: 01/06/20 Chief Complaint: Abdominal pain Subjective: No new changes, Other (No acute events Feeling better Denies any chest pain or shortness of breath No fever or chills) Review of Systems 10-point ROS is otherwise unremarkable Physical Examination - Vital Signs Temperature: 97 F Blood Pressure: 133/69 Pulse: 56 Respirations: 16 Pulse Ox (%): 97 - Physical Exam General: Alert, In no apparent distress HEENT: Atraumatic, Normocephalic Neck: Supple Respiratory: Clear to auscultation bilaterally, Normal air movement Cardiovascular: Regular rate/rhythm, Normal S1 S2 Capillary refill: <2 Seconds Gastrointestinal: Soft and benign, W/out hepatosplenomegaly Musculoskeletal: No clubbing, No swelling Integumentary: No rashes Neurological: Normal speech, Normal strength at 5/5 x4 extr Lymphatics: No axilla or inguinal lymphadenopathy Assessment & Plan - Problems (Diagnosis) (1) Diverticulitis of colon with perforation Current Visit: Yes Status: Acute (2) Leukocytosis Current Visit: Yes Status: Acute (3) Acute renal insufficiency Current Visit: Yes Status: Acute Physician Review Additional Text: Diverticulitis with perforation Leukocytosis Acute renal insufficiency Hypokalemia Plan Monitor closely under telemetry Pain controlled well Continue IV antibiotics ID consult appreciated Cultures negative Appreciate Surgery consult with Dr. Mckeon IV hydration monitor renal parameters Replace electrolytes Leukocytosis normalized Monitor CBC daily GI/DVT prophylaxis Advanced directives full code Disposition : Monitor closely Continue IV antibiotics for now Need outpatient follow up GI for colonoscopy down the line Discuss about diet modification Plan is to get a repeat CT on Thursday Time Spent Managing Pts Care (In Minutes): 43
--- NOTE | 2020-01-06 19:25 | PN ---
Date of Progress Note: 01/05/2020 Diagnosis: Diverticulitis with perforation. Subjective: The patient is doing well. No complaint. No fever. No nausea. No vomiting. Review of Systems: Ten points otherwise unremarkable. The patient had a small bowel movement. Physical Examination: Chest: Clear. Abdomen: Soft and depressible. No guarding or rebound. Mild left lower quadrant tenderness still. Extremities: Good capillary refill. Laboratory Data: Blood work reviewed. Plan: We are going to start clear liquid diet and then we are going to do CAT scan on Thursday. If e CAT scan shows worsening of the situation, we will address the issue at that moment. If it shows b katie or improvement, then we might consider changing him to p.o. antibiotics and then discharge him on p.o. antibiotics for 1 more week. He understands the plan. We encouraged ambulation. MICHELLE/MENDOZA Voice ID: [id number] Report ID: [id number]
--- NOTE | 2020-01-06 19:40 | PN ---
Date of Progress Note: 01/06/2020 Diagnosis: Diverticulitis with perforation. Subjective: The patient is doing better. No nausea, no vomiting. Still bloated. Some mild abdomin al pain, but better than before. He is passing flatus and have a bowel movement. Review of Systems: Ten points otherwise unremarkable. Physical Examination: Chest: Clear. Abdomen: Soft and depressible. No guarding or rebound. Bowel sounds positive. Extremities: Good capillary refill. Laboratory Data: Blood work reviewed. Plan: Ambulation. Continue IV antibiotics. Once again same plan in the next 48 hours. We will rep eat the CAT scan and see the progress and hopefully he improve so we can send him home with p.o. anti biotics. MICHELLE/MENDOZA Voice ID: [id number] Report ID: [id number]
[2020-01-06] MEDS ORDERED: POTASSIUM 25 MEQ EFFERV TAB PO ONE (19:52)
[2020-01-07] MEDS: METRONIDAZOLE 500mg IVPB 500 MG/100 ML BAG IV SCH ×3 (01:24→16:12)
[2020-01-07] MEDS: PIPER/TAZO/NS 3.375gm 3.375 GM/100 ML BAG IVPB SCH ×3 (02:18→17:09)
[2020-01-07 02:35] VITALS: O2SAT 96
[2020-01-07 04:32] LABS: Potassium 3.6 mmol/L (3.5-5.1)
[2020-01-07] MEDS: D5 0.45 NS 1,000 ML IV SCH ×3 (05:34→16:16)
[2020-01-07] MEDS: PANTOPRAZOLE 40 MG INJ IVP SCH ×2 (08:03→20:26)
[2020-01-07] MEDS: ENOXAPARIN 40 MG/0.4 ML SQ SCH (08:03)
[2020-01-07] MEDS: POTASSIUM 25 MEQ EFFERV TAB PO SCH (08:03)
--- NOTE | 2020-01-07 10:10 | P.PN ---
Subjective Date of Service: 01/07/20 Chief Complaint: Abdominal pain Subjective: No new changes, Other (Pain is better Denies any chest pain or shortness of breath) Review of Systems 10-point ROS is otherwise unremarkable Physical Examination - Vital Signs Temperature: 96.8 F Blood Pressure: 134/80 Pulse: 69 Respirations: 16 Pulse Ox (%): 99 - Physical Exam General: Alert, In no apparent distress HEENT: Atraumatic, Normocephalic Neck: Supple Respiratory: Clear to auscultation bilaterally Cardiovascular: Regular rate/rhythm, Normal S1 S2 Capillary refill: <2 Seconds Gastrointestinal: Soft and benign, No tenderness Musculoskeletal: No clubbing, No swelling Integumentary: No rashes Neurological: Normal speech, Normal strength at 5/5 x4 extr Lymphatics: No axilla or inguinal lymphadenopathy Assessment & Plan - Problems (Diagnosis) (1) Diverticulitis of colon with perforation Current Visit: Yes Status: Acute (2) Leukocytosis Current Visit: Yes Status: Acute (3) Acute renal insufficiency Current Visit: Yes Status: Acute Physician Review Additional Text: Diverticulitis with perforation Leukocytosis Acute renal insufficiency Hypokalemia Plan Monitor closely Has bowel movements Pain controlled well Continue IV antibiotics ID consult appreciated Cultures negative Appreciate Surgery consult with Dr. Mckeon IV hydration monitor renal parameters Replace electrolytes Leukocytosis normalized Monitor CBC daily GI/DVT prophylaxis Advanced directives full code Disposition : Monitor closely Continue IV antibiotics for now Need outpatient follow up GI for colonoscopy down the line Discuss about diet modification Plan is to get a repeat CT on Thursday Time Spent Managing Pts Care (In Minutes): 43
--- NOTE | 2020-01-07 19:17 | PN ---
Date of Progress Note: 01/07/2020 Diagnosis: Diverticulitis with perforation. Subjective: The patient is doing better. No fever. No shortness of breath. He is tolerating full liquid diet a little better and has several bowel movement, although loose. Review of Systems: Ten points otherwise unremarkable. Physical Examination: Chest: Clear. Abdomen: Soft and depressible. Left lower quadrant tenderness diminished. No guarding or rebound. Extremities: Good capillary refill. Previous imaging discussed with the patient. Assessment/plan: Plan: CAT scan tomorrow. Continue full liquid diet. Out of bed. MICHELLE/MODL Voice ID: [id number] Report ID: [id number]
[2020-01-08] MEDS: PIPER/TAZO/NS 3.375gm 3.375 GM/100 ML BAG IVPB SCH ×2 (00:29→08:04)
[2020-01-08] MEDS: METRONIDAZOLE 500mg IVPB 500 MG/100 ML BAG IV SCH ×2 (00:30→08:05)
[2020-01-08] MEDS: D5 0.45 NS 1,000 ML IV SCH ×2 (04:05→13:47)
[2020-01-08 06:37] LABS: Potassium 4.7 mmol/L (3.5-5.1)
[2020-01-08] MEDS: ENOXAPARIN 40 MG/0.4 ML SQ SCH (08:05)
[2020-01-08] MEDS: PANTOPRAZOLE 40 MG INJ IVP SCH (08:05)
[2020-01-08] MEDS: POTASSIUM 25 MEQ EFFERV TAB PO SCH (08:06)
[2020-01-08 08:46] VITALS: BP 118/78; TEMP 96.5
--- NOTE | 2020-01-08 09:56 | P.PN ---
Subjective Date of Service: 01/08/20 Chief Complaint: Abdominal pain Subjective: No new changes Review of Systems 10-point ROS is otherwise unremarkable Physical Examination - Vital Signs Temperature: 96.5 F Blood Pressure: 118/78 Pulse: 70 Respirations: 16 Pulse Ox (%): 96 - Physical Exam General: Alert, In no apparent distress HEENT: Atraumatic, Normocephalic Neck: Supple Respiratory: Clear to auscultation bilaterally Cardiovascular: Normal pulses, Regular rate/rhythm Capillary refill: <2 Seconds Gastrointestinal: Soft and benign, Non-distended, W/out hepatosplenomegaly Musculoskeletal: No clubbing, No swelling Integumentary: No rashes, No breakdown Neurological: Normal speech Lymphatics: No axilla or inguinal lymphadenopathy Assessment & Plan - Problems (Diagnosis) (1) Diverticulitis of colon with perforation Current Visit: Yes Status: Acute (2) Leukocytosis Current Visit: Yes Status: Acute (3) Acute renal insufficiency Current Visit: Yes Status: Acute Physician Review Additional Text: Diverticulitis with perforation Leukocytosis Acute renal insufficiency Hypokalemia Plan no acute events Has bowel movements Pain controlled well Continue IV antibiotics ID consult appreciated Cultures negative Appreciate Surgery consult with Dr. Mckeon Getting a repeat CT today monitor renal parameters Replace electrolytes Leukocytosis normalized Monitor CBC daily GI/DVT prophylaxis Advanced directives full code Disposition : Monitor closely Continue IV antibiotics for now Need outpatient follow up GI for colonoscopy down the line Discuss about diet modification Repeat CT today Time Spent Managing Pts Care (In Minutes): 42
--- NOTE | 2020-01-08 12:26 | RAD REPORT ---
EXAM DESCRIPTION: CT - Abdomen Pelvis Wo Contrast - 01/08/2020 12:09 pm CLINICAL HISTORY: Abdominal pain COMPARISON: January 02, 2020 TECHNIQUE: Computed axial tomography of the abdomen and pelvis was obtained. IV and oral contrast we re not requested. All CT scans are performed using dose optimization technique as appropriate and may include automated exposure control or mA/KV adjustment according to patient size. FINDINGS: The evaluation of solid organs, vessels and bowel is limited secondary to the lack of con trast administration. Slight increase in the amount of extraluminal air within the left pelvis superior to sigmoid. A drain able fluid collection/abscess is not present. The stranding adjacent to the sigmoid colon has mildly diminished. No other significant change IMPRESSION: The extraluminal air within the left pelvis has slightly increased size. . No drainable fluid collection/abscess Mild improvement in the stranding within the fat adjacent to sigmoid diverticulosis
--- NOTE | 2020-01-08 13:06 | P.DS ---
Admission Date: 01/02/20 Discharge Date: 01/08/20 Disposition: ROUTINE DISCHARGE Discharge Condition: GOOD Reason for Admission: Abdominal pain - Problems (1) Diverticulitis of colon with perforation Status: Acute (2) Leukocytosis Status: Acute (3) Acute renal insufficiency Status: Acute Brief History of Present Illness: 59 yrs old male with past medical history of chronic back pain and umbilical hernia came with abdominal pain and nausea and vomiting and diarrhea and body aches which started yesterday and has been progressively worsening hence was brought to ER. Denies any fever or chills. Abdominal pain is located lower abdomen cramping type of pain. Associated with nausea and occasional diarrhea. Did not have any history of diverticulitis in the past. Never had colonoscopy. Patient was assessed in the ER and was found to have diverticulitis with microperforation and was admitted for further management . . Hospital Course: Diverticulitis with perforation Leukocytosis Acute renal insufficiency Hypokalemia Course He was admitted and was started on IV antibiotics . Pain was controlled well and was kept NPO. Dr Mckeon was consulted and was recommended conservative management with IV antibiotics and bowel rest . His renal parameters were normalised . ID consult appreciated , Cultures negative . Appreciate Surgery consult with Dr. Mckeon. Replaced electrolytes Leukocytosis normalized. patient was started on clear liquid diet and advanced to soft Repeat CT was done . Patient wanted to go home and is being discharged to Home in a stable condition with an advise to follow up with PCP in [address] Mckeon in 5 days . ER precautions were given as well . Vital Signs/Physical Exam: Temp Pulse Resp BP Pulse Ox 96.5 F L 70 16 118/78 96 01/08/20 09:56 01/08/20 09:56 01/08/20 09:56 01/08/20 09:56 01/08/20 09:56 General: Alert, In no apparent distress, Oriented x3 HEENT: Atraumatic, Normocephalic Neck: Supple Respiratory: Clear to auscultation bilaterally Cardiovascular: Normal pulses, Regular rate/rhythm, Normal S1 S2 Capillary refill: <2 Seconds Gastrointestinal: Soft and benign, Non-distended, W/out hepatosplenomegaly Musculoskeletal: No clubbing, No swelling Integumentary: No rashes Neurological: Normal speech, Normal strength at 5/5 x4 extr Lymphatics: No axilla or inguinal lymphadenopathy Laboratory Data at Discharge: WBC 6.5 K/uL (4.3-10.9) D 01/05/20 08:59 Hgb 14.4 g/dL (13.6-17.9) 01/05/20 08:59 Hct 41.1 % (39.6-49.0) 01/05/20 08:59 Plt Count 252 K/uL (152-406) D 01/05/20 08:59 Sodium 140 mmol/L (136-145) 01/08/20 06:00 Potassium 4.7 mmol/L (3.5-5.1) 01/08/20 06:00 BUN 8 mg/dL (7-18) 01/08/20 06:00 Creatinine 1.12 mg/dL (0.55-1.3) 01/08/20 06:00 Glucose 120 mg/dL (74-106) H 01/08/20 06:00 Phosphorus 3.2 mg/dL (2.5-4.9) 01/05/20 05:52 Magnesium 2.4 mg/dL (1.8-2.4) 01/05/20 05:52 Total Bilirubin 1.0 mg/dL (0.2-1.0) 01/03/20 06:09 AST 16 U/L (15-37) 01/03/20 06:09 ALT 30 U/L (12-78) 01/03/20 06:09 Alkaline Phosphatase 81 U/L (45-117) 01/03/20 06:09 Lipase 72 U/L (73-393) L 01/02/20 16:18 Home Medications: Ciprofloxacin HCl [Cipro 500 MG Tablet] 500 mg PO BID #14 tab 01/08/20 Codeine/APAP [Tylenol W/Codeine #3 tab] 1 tab PO Q6HP PRN #14 tab 01/08/20 Pantoprazole Sodium [Protonix] 40 mg PO DAILY #15 tablet. 01/08/20 metroNIDAZOLE [Flagyl] 500 mg PO Q8H 7 Days #21 tablet 01/08/20 New Medications: Ciprofloxacin HCl [Cipro 500 MG Tablet] 500 mg PO BID #14 tab metroNIDAZOLE [Flagyl] 500 mg PO Q8H 7 Days #21 tablet Pantoprazole Sodium [Protonix] 40 mg PO DAILY #15 tablet. Codeine/APAP [Tylenol W/Codeine #3 tab] 1 tab PO Q6HP PRN #14 tab PRN Reason: Pain Activity: Ad camron Followup: Prabhu Mckeon MD [ACTIVE - CAN ADMIT] - (Call to make an appointment. ) Time spent managing pt's care (in minutes): 43
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
== END 2020-01-08 14:28 | disposition home or self-care (01) | DRG 392 ==
LOC: ER 13:40 → ERHOLD 17:30 → 2ND 18:15
PROVIDERS: ADMIT Family Medicine; ATTEND Family Medicine
DX: K57.20 Diverticulitis of large intestine with perforation and abscess without bleeding (principal); N28.9 Disorder of kidney and ureter, unspecified; E87.6 Hypokalemia; E66.9 Obesity, unspecified; Z68.33 Body mass index [BMI] 33.0-33.9, adult; D72.829 Elevated white blood cell count, unspecified
CPT/HCPCS: 36415; 74019; 74176; 74177; 80048; 80053; 80076; 81003; 81015; 82565; 83690; 83735; 84100; 84132; 85025; 87040; 96361; 96365; 96375; 99285; C9113; J1650; J2175; J2270; J2543; J3480; J7040; J7799; Q9967; U0002

== ENCOUNTER 2020-01-23 08:51 | Inpatient (IN) | payer BC ==
--- OUTSIDE RECORDS SUMMARY | 2020-01-23 08:53 | XMS REPORT | Continuity of Care Document ---
:1960 Author Organization [facility] t Address [address] [place] [address] Dr. Contreras [address] [place] [id number] Care Team Providers Name Role Phone Unavailable Unavailable Unavailable Payers Payer Name Policy Type Policy Number Effective Date Expiration Date S ource Problems This patient has no known problems. Allergies, Adverse Reactions, Alerts This patient has no known allergies or adverse reactions. Medications This patient has no known medications. Procedures This patient has no known procedures. Results This patient has no known results.
[2020-01-23] MEDS ORDERED: FENTANYL CITR 100 MCG/2 ML ONE ×2 (09:20→09:48)
[2020-01-23] MEDS ORDERED: ONDANSETRON 4 MG/2 ML VIAL ONE (09:21)
[2020-01-23] MEDS ORDERED: NA CHLORIDE 0.9% 2,000 ML ONE (09:21)
[2020-01-23 09:32] LABS: Protime INR 1.01
[2020-01-23] MEDS ORDERED: PIPERACIL/TAZO 4.5 GM VIAL IV ONE (09:33)
[2020-01-23] MEDS ORDERED: NA CHLORIDE 0.9% 250 ML ONE (09:35)
[2020-01-23 09:50] LABS: Basophils % 0.5 % (0-1.3); Hematocrit 45.5 % (39.6-49.0); MPV 9.9 fL (7.6-11.3); RBC Red Blood Cell Count 5.27 M/uL (4.33-5.43)
--- NOTE | 2020-01-23 09:54 | RAD REPORT ---
EXAM DESCRIPTION: RAD - Chest Single View - 01/23/2020 9:36 am CLINICAL HISTORY: ABDOMINAL DISTENTION, lower chest pain COMPARISON: None TECHNIQUE: AP portable chest image was obtained 01/23/2020 9:36 am . FINDINGS: Lungs are clear. Heart and vasculature are normal. Mediastinum is widened by rotation shal low inspiration portable imaging. No measurable pleural effusion and no pneumothorax. No acute bony a bnormality seen. No acute aortic findings suspected. IMPRESSION: No acute cardiopulmonary process.
[2020-01-23 09:57] LABS: ALT/SGPT 27 U/L (12-78); AST/SGOT 11 U/L (15-37); Albumin 3.5 g/dL (3.4-5.0); Alkaline Phosphatase 95 U/L (45-117); Amylase 54 U/L (25-115); Bilirubin Direct 0.2 mg/dL (0-0.2); Bilirubin Total 0.7 mg/dL (0.2-1.0); CKMB Creatine Kinase MB < 1.0 ng/mL (0.3-3.6); Creatine Phosphokinase 38 U/L (39-308); Lipase 68 U/L (73-393); Protein, Total 7.2 g/dL (6.4-8.2); Troponin (Emerg Dept Use Only) < 0.02 ng/mL (0.0-0.045)
[2020-01-23] MEDS ORDERED: PIPER/TAZO/NS 4.5gm 4.5 GM/100 ML BAG IV SCH (10:00)
--- NOTE | 2020-01-23 10:09 | RAD REPORT ---
EXAM DESCRIPTION: CT - Abdomen Pelvis W Contrast - 01/23/2020 9:55 am CLINICAL HISTORY: ABD PAIN COMPARISON: Abdomen Pelvis W Contrast dated 01/02/2020 TECHNIQUE: Biphasic, helical CT imaging of the abdomen and pelvis was performed following 100 ml non -ionic IV contrast. No oral contrast. All CT scans are performed using dose optimization technique as appropriate and may include automated exposure control or mA/KV adjustment according to patient size. FINDINGS: No suspicious findings in the lung bases. The liver, spleen, and pancreas show no suspicious findings. Gallbladder and biliary tree are also wi thout suspicious finding. Symmetric renal function is seen with no hydronephrosis or suspicious renal mass. No pyelonephritis o r acute parenchymal process. No bladder abnormalities. No adrenal abnormalities. Nonobstructing calcu li present. Mild wall thickening in the sigmoid colon with edematous/inflammatory stranding in the adjacent fat. Patient has an underlying moderate severity diverticulosis. There is edematous/ inflammatory strandin g that extends superiorly into the mesenteric fat. Several extraluminal air collections are present. Pattern is less severe than seen on January 01 imaging. Air would not be expected to persists 3 weeks after the prior event. This is suspected to be new diverticulitis. Stomach is distended by fluid. The re are several prominent small bowel loops present probably secondary ileus. No distant free air. No pneumatosis. No suspicious bony findings. IMPRESSION: Left lower quadrant diverticulitis changes are present with small extraluminal free air collections superior to the involved sigmoid colon. Findings are less severe than seen January 01. Air would most likely have been absorbed over a 3 week interval. Recurrent diverticulitis is favored over residual diverticulitis.
--- NOTE | 2020-01-23 10:32 | ER ---
Nurse's Notes [facility] Name: Can Thompson Age: 59 yrs Sex: Male : 1960 Arrival Date: 01/23/2020 Time: 08:54 Bed 2 Private MD: Jose Peguero E Diagnosis: Generalized abdominal pain;Diverticulitis - free extraluminal air;Hypotension, unspecified Presentation: 01/22 09:00 Chief complaint: Patient states: was here a couple weeks ago for diverticulitis, has iw been seeing Dr. Mckeon, started having lower abd pain and back cramping and nausea since last night, was due to see a specialist in [place] but is having a lot of pain. Coronavirus screen: At this time, the client does not indicate any symptoms associated with coronavirus-19. Ebola Screen: Patient negative for fever greater than or equal to 101.5 degrees Fahrenheit, and additional compatible Ebola Virus Disease symptoms Patient denies exposure to infectious person. Patient denies travel to an Ebola-affected area in the 21 days before illness onset. No symptoms or risks identified at this time. Risk Assessment: Do you want to hurt yourself or someone else? Patient reports no desire to harm self or others. 09:00 Method Of Arrival: Wheelchair iw 09:00 Acuity: GIUSEPPE 2 iw :22 Initial Sepsis Screen: Does the patient meet any 2 criteria? Systolic BP < 90 mmHg. sv Mean Arterial Pressure (MAP) < 65. Yes Does the patient have a suspected source of infection? Yes: Acute abdominal pain. Onset of symptoms was January 22, 2020. Historical: - Allergies: 09:16 No Known Allergies; iw - PMHx: 09:16 Diverticulitis; iw - PSHx: 09:16 back surgery; iw - Immunization history:: Adult Immunizations. - Social history:: Smoking status: . Screenin:22 Abuse screen: Denies threats or abuse. Denies injuries from another. Nutritional sv screening: No deficits noted. Tuberculosis screening: No symptoms or risk factors identified. Fall Risk None identified. Assessment: 09:00 General: Appears in no apparent distress. uncomfortable, well developed, Behavior is sv cooperative, appropriate for age, restless. Pain: Complains of pain in right lower quadrant and right upper quadrant and umbilical area Pain currently is 10 out of 10 on a pain scale. Pain began 1 day ago. Is continuous, Aggravated by increased activity, Noted to be grimacing, guarding, moaning, restless. Neuro: Level of Consciousness is awake, alert, obeys commands, Oriented to person, place, time, situation, Moves all extremities. Full function Speech is normal. Respiratory: Airway is patent Respiratory effort is even, unlabored, Respiratory pattern is regular, symmetrical. GI: Abdomen is distended, Abdomen is tender to palpation X 4 quads. Reports lower abdominal pain, intolerance of fluids, intolerance of food, nausea. Derm: Skin is intact, Skin is pink, warm \T\ dry. Musculoskeletal: Range of motion: intact in all extremities. 09:42 Reassessment: Patient appears in no apparent distress at this time. No changes from sv previously documented assessment. Patient and/or family updated on plan of care and expected duration. Pain level reassessed. Patient is alert, oriented x 3, equal unlabored respirations, skin warm/dry/pink. 10:12 Reassessment: Dr Shoemaker at bedside. sv 10:24 Reassessment: Patient appears in no apparent distress at this time. No changes from sv previously documented assessment. Patient and/or family updated on plan of care and expected duration. Pain level reassessed. Patient is alert, oriented x 3, equal unlabored respirations, skin warm/dry/pink. 10:27 Reassessment: Dr Newman at bedside. sv 12:32 Reassessment: Patient appears in no apparent distress at this time. Patient and/or sv family updated on plan of care and expected duration. Pain level reassessed. Patient is alert, oriented x 3, equal unlabored respirations, skin warm/dry/pink. Patient states symptoms have improved. 13:00 Reassessment: Patient appears in no apparent distress at this time. Patient and/or sv family updated on plan of care and expected duration. Pain level reassessed. Patient is alert, oriented x 3, equal unlabored respirations, skin warm/dry/pink. 14:30 Reassessment: Patient appears in no apparent distress at this time. Patient and/or sv family updated on plan of care and expected duration. Pain level reassessed. Patient is alert, oriented x 3, equal unlabored respirations, skin warm/dry/pink. Vital Signs: 09:00 BP 69 / 58; Pulse 75; Resp 16; Temp 97.9; Pulse Ox 98% on R/A; Weight 102.06 kg; Height iw 6 ft. 0 in. (182.88 cm); Pain 10/10; 09:24 BP 100 / 50; Pulse 68 MON; Resp 20; Pulse Ox 99% ; sv 10:30 BP 99 / 62; Pulse 82 MON; Resp 13; Pulse Ox 99% ; sv 11:07 BP 98 / 61; Pulse 90 MON; Resp 16; Pulse Ox 100% on R/A; sv 11:30 BP 112 / 58; Pulse 84 MON; Resp 21; Pulse Ox 96% on R/A; sv 11:30 Pain 6/10; sv 12:00 BP 97 / 66; Pulse 85 MON; Resp 21; Pulse Ox 96% on R/A; sv 12:30 BP 94 / 60; Pulse 87 MON; Resp 17; Pulse Ox 97% on R/A; sv 13:00 BP 96 / 58; Pulse 87 MON; Resp 14; Pulse Ox 97% ; sv 13:30 BP 93 / 61; Pulse 87 MON; Resp 21; Pulse Ox 96% ; sv 14:00 BP 90 / 60; Pulse 84 MON; Resp 24; Pulse Ox 95% on R/A; sv 14:30 BP 91 / 60; Pulse 88 MON; Resp 20; Pulse Ox 96% on R/A; sv 09:00 Body Mass Index 30.52 (102.06 kg, 182.88 cm) iw 09:24 Sinus Rhythm sv 10:30 Sinus Rhythm sv 11:07 Sinus Rhythm sv 11:30 Sinus Rhythm sv 12:00 Sinus Rhythm sv 12:30 Sinus Rhythm sv 13:00 Sinus Rhythm sv 13:30 Sinus Rhythm sv 14:00 Sinus Rhythm sv 14:30 Sinus Rhythm sv ED Course: 08:54 Patient arrived in ED. mr 08:54 Jose Peguero MD is Private Physician. mr 09:01 Triage completed. iw 09:05 Patient has correct armband on for positive identification. Bed in low position. Call sv light in reach. Side rails up X2. 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 Pulse ox on. NIBP on. Door closed. Head of bed elevated. 09:05 First set of blood cultures drawn by ED staff. sv 09:13 Angelita Marquez, JENNY is Primary Nurse. sv 09:13 Second set of blood cultures drawn by ED staff. sv 09:16 Arm band placed on. iw 09:16 Inserted saline lock: 20 gauge in right antecubital area, using aseptic technique. iw Blood collected. IV inserted by ZAIDA Mcdonough. 09:[address] Mckeon called on cell phone and left message to please call Dr. Andrea bales back regarding one of his patients. 09:25 X-ray(s) taken. sv 09:25 Inserted saline lock: 18 gauge in left wrist, using aseptic technique. ,using aseptic sv technique. done by Sharonda CERDA. 09:26 Sharonda Barkley FNP-C is PHCP. snw 09:26 Redd Mendez MD is Attending Physician. snw 09:36 Chest Single View XRAY In Process Unspecified. EDMS 09:55 CT Abd/Pelvis - IV Contrast Only In Process Unspecified. EDMS 10:30 Chance Newman MD is Hospitalizing Provider. snw 10:41 Awaiting bed assignment. sv 11:07 NGT: inserted 14 Fr. via right nare. verified placement of air over stomach, verified sv return of gastric contents, to intermittent suction. Returned bile. Patient tolerated well. 14:20 Awaiting bed assignment. sv 14:28 Urine collected: clean catch specimen, clear. sv 14:29 No provider procedures requiring assistance completed. Patient admitted, IV remains in sv place. intact. 14:33 Urine collected: clean catch specimen, clear. mh5 14:34 Urine Microscopic Only Sent. 5 14:37 Urine Dipstick--Ancillary (enter results) Sent. mh5 Administered Medications: 09:15 Drug: fentaNYL (PF) 25 mcg Route: IVP; Site: right antecubital; iw 09:40 Follow up: Response: No adverse reaction; No change in condition sv 09:15 Drug: Zofran (Ondansetron) 4 mg Route: IVP; Site: right antecubital; iw 09:42 Follow up: Response: No adverse reaction sv 09:15 Drug: NS 0.9% 1000 ml Route: IV; Rate: 1 bolus; Site: right antecubital; iw 11:07 Follow up: Response: No adverse reaction; IV Status: Completed infusion; IV Intake: sv 1000ml 09:18 Drug: NS 0.9% 1000 ml Route: IV; Rate: 1 bolus; Site: right antecubital; iw 11:06 Follow up: Response: No adverse reaction; IV Status: Completed infusion; IV Intake: sv 1000ml 09:42 Drug: fentaNYL (PF) 25 mcg {Note: rass2.} Route: IVP; Site: right antecubital; sv 10:50 Follow up: Response: No adverse reaction; No change in condition; RASS: Agitated (+2) sv 10:24 Drug: Zosyn 4.5 grams Route: IVPB; Infused Over: 60 mins; Site: left wrist; sv 11:06 Follow up: Response: No adverse reaction; IV Status: Completed infusion; IV Intake: sv 100ml 11:06 Drug: fentaNYL (PF) 25 mcg {Note: rass2.} Route: IVP; Site: left wrist; sv 11:30 Follow up: Pain 6/10 Adult; Response: No adverse reaction; Pain is decreased; RASS: sv Restless (+1) 12:32 Drug: InvANZ 1 grams Route: IVPB; Infused Over: 30 mins; Site: left wrist; iw 13:00 Follow up: Response: No adverse reaction; IV Status: Completed infusion; IV Intake: sv 100ml Intake: 11:06 IV: 100ml; Total: 100ml. sv 11:06 IV: 1000ml; Total: 1100ml. sv 11:07 IV: 1000ml; Total: 2100ml. sv 13:00 IV: 100ml; Total: 2200ml. sv Output: 14:55 Urine: 650ml (Voided); Gastric: 800ml (NGT); Total: 1450ml. sv Outcome: 10:32 Decision to Hospitalize by Provider. snw 14:28 Admitted to ICU accompanied by nurse, via stretcher, with chart, Report called to mane Fitzgerald RN 14:28 Condition: stable 14:28 Instructed on the need for admit. 14:54 Patient left the ED. Signatures: Dispatcher [employer] Angelita Falcon RN RN sv Waters, Shelly, BIANKA VILLALTAP-Eliana Pettit Irene, RN RN iw Martinez, Maria [facility] Yamilka Crisostomo Corrections: (The following items were deleted from the chart) 12:55 09:24 BP 100 / 50; Pulse 68bpm; Resp 20bpm; Pulse Ox 99%; sv sv 12:55 10:30 BP 99 / 62; Pulse 82bpm; Resp 13bpm; Pulse Ox 99%; sv sv 12:55 11:07 BP 98 / 61; Pulse 90bpm; Resp 16bpm; Pulse Ox 100% RA; sv sv 14:55 14:30 Urine 500, (Voided), Gastric 800, (NGT), Output Total 1300. sv sv
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
[2020-01-23] MEDS ORDERED: ONDANSETRON 4 MG/2 ML VIAL IV PRN (10:57)
[2020-01-23] MEDS ORDERED: NA CHLORIDE 0.9% 1,000 ML IV SCH (11:00)
--- NOTE | 2020-01-23 11:04 | P.HP ---
Certification for Inpatient Patient admitted to: Inpatient With expected LOS: >2 Midnights Practitioner: I am a practitioner with admitting privileges, knowledge of patient current condition, hospital course, and medical plan of care. Services: Services provided to patient in accordance with Admission requirements found in Title 42 Section 412.3 of the Code of Federal Regulations Patient History Date of Service: 01/23/20 Reason for admission: Acute diverticulitis with microperforation History of Present Illness: 59-year-old male, PMH: Chronic back pain, umbilical hernia, recent hospitalization for acute diverticulitis with microperforation ~2 weeks ago, presents the ED due to 1 day of acute worsening abdominal pain and distention. He states he was feeling better and recovering from his recent hospitalization up until yesterday evening. He 1st noticed some mild distension and abdominal pain, but it seemed to temporarily resolve overnight. The symptoms recurred th morning so he presented to the ED. Reports the pain is throughout his abdomen but worse around his belly button. It does not radiate. It can go up to a 8-9/10 at times. He denies chest pain, shortness of breath, difficulty urinating, fevers/chills, new rashes, or vision changes. During his prior hospitalization from 01/01-01/07 his diagnosis acute perforated diverticulitis and significant inflammatory phlegmon in the area sigmoid colon. He was treated with antibiotic coverage and non operative management by Dr. Mckeon. He was seen as an outpatient by Dr. Mckeon, who arranged the co nsultation with Dr. Taylor for possible robotic colectomy. In the ED he was found to be significantly hypotensive, with systolic in the 60s. This improved with IV fluid resuscitation. Labwork notable for leukocytosis (13.9), lactic acidosis (3.1), prior calcitonin (0.05). Blood cultures were obtained in the ED, he was given 1 dose of Invanz and started on Zosyn. General surgery, Dr. Shoemaker was consulted. CT abdomen: Left lower quadrant diverticulitis, small extraluminal free air collection superior to the involved sigmoid colon. Findings less severe than seen on the . Recurrent diverticulitis is favored over residual diverticulitis Allergies No Known Allergies Allergy (Verified 01/02/20 19:39) Home Medications: Pantoprazole Sodium [Protonix] 40 mg PO DAILY #15 tablet. 01/08/20 - Past Medical/Surgical History Diabetic: No -: Umbilical Hernia Past Surgical History: Patient denies surgical history - Family History Family History: Reviewed- Non-Contributory - Family History Mother -: Hypertension, Diabetes - Social History Smoking Status: Former smoker Alcohol use: Yes Review of Systems General: Weakness (Generalized) Eyes: Unremarkable ENT: Unremarkable Respiratory: Unremarkable Cardiovascular: Unremarkable Gastrointestinal: As per HPI Genitourinary: Unremarkable Musculoskeletal: Unremarkable Integumentary: Unremarkable Neurological: Unremarkable Physical Examination - Physical Exam General: Alert, Oriented x3, Mild distress (In pain) HEENT: Sclerae nonicteric Respiratory: Clear to auscultation bilaterally, Normal air movement Cardiovascular: No edema, Regular rate/rhythm, Normal S1 S2 Gastrointestinal: Distended (Mild), Tenderness (Diffuse, most at periumbilical area) Musculoskeletal: No erythema, No tenderness Integumentary: No rashes Neurological: Normal speech, Normal affect - Studies Laboratory Data (last 24 hrs) 01/23/20 09:13: PT 11.9, INR 1.01, APTT 30.2 01/23/20 09:13: WBC 13.9 H, Hgb 15.0, Hct 45.5, Plt Count 325 01/23/20 09:13: Total Bilirubin 0.7, AST 11 L, ALT 27, Alkaline Phosphatase 95, Amylase 54, Lipase 68 L Assessment and Plan - Advance Directives Does patient have a Living Will: Yes Does patient have a Durable POA for Healthcare: Yes - Code Status/Comfort Care Code Status Assessed: Yes Code Status: Full Code Physician Review Additional Text: Acute perforated diverticulitis Severe Sepsis, Shock -significantly hypotensive in ED, +lactic acidosis -CT performed in the ED, favored recurrent over residual diverticulitis -free air in abdomen present, but much less compared to prior CT, unclear if truly persistent or new -general surgery consulted -IV fluids, received Invanz in the ED, continue Zosyn -will monitor in the ICU given his significant low blood pressure, however has been responding to IV fluid resuscitation -serial abdominal exams -NPO, IVF, PPI -NG tube to LIWS -accucheks, low dose SSI -pain control -check labs / electrolytes Chronic Back pain - NPO for now Time Spent Managing Pts Care (In Minutes): 55
--- NOTE | 2020-01-23 11:34 | CON ---
Date of Consultation: 01/23/2020 Brief History Of Present Illness: The patient is a 59-year-old male with a past medical history of c hronic back pain and umbilical hernia, who came to the hospital complaining of abdominal pain on 12/16. Was brought in and worked up and had a diagnosis of acute perforated diverticulitis and sign ificant inflammatory phlegmon in the area of the sigmoid colon. He was treated with antibiotic cover age and nonoperative management with serial exams with Dr. Mckeon and ultimately improved. He was therefore discharged on a low residue diet with followup antibiotics for 1 week and was doing well. He ultimately followed by Dr. Mckeon who saw him in clinic and found that he was improving at that point and arranged for a consultation with Dr. Armand Frankel for discussion of possible robotic c olectomy. He was doing well up until approximately yesterday when he was trying to stick with a resi due diet, perhaps ate an increased amount and as such developed abdominal pain earlier today. He cam e to the hospital, brought in by himself with complaints of worsening global abdominal pain predomina ntly and worse in the left lower quadrant. It was similar to his previous episode in severity and in character. It was associated with some nausea, but no vomiting and some subjective fever. He was f ound to be somewhat hypotensive on admission in the ER, but he was given IV fluid resuscitation and s tarted on antibiotics empirically with Zosyn and had improvement of his vital signs by the time I arr ived for my physical examination. Past Medical History: Significant for chronic back pain, umbilical hernia. Past Surgical History: He has had 2 back surgeries both posterior approach. Medications: None. Review of Systems: A 10-point review of systems other than HPI, denies. Social History: He denies smoking, alcohol, recreational drug use. Allergies: NO KNOWN DRUG ALLERGIES. Physical Examination: Vital Signs: At the time of my examination, his vital signs were stable. His heart rate was 85, blo od pressure 102/87 during my exam, respiratory rate 16. General: He is awake, alert, and oriented. Psychiatric: Appropriate and conversive. HEENT: Normocephalic. Sclerae anicteric. Mucous membranes moist. Oropharynx clear. Neck: Supple. No JVD. Chest: Normal expansion and excursion. Cardiovascular: Regular rate and rhythm. Pulmonary: Clear to auscultation bilaterally. Abdomen: He had global tenderness to palpation with most significant left lower quadrant. He has an umbilical hernia, which is reducible in the umbilical area. Tender to reduction. As such I reduced it, but did not continue to compress it or consider putting a binder on as he has significant global abdominal pain likely related to his perforated diverticulitis. His abdomen is minimally distended. Extremities: No clubbing, cyanosis, or edema. Skin: Warm and dry. Laboratory Data: Reveals a white blood cell count of 13.9, hemoglobin 15.0, hematocrit 45.5, platele t count 325, neutrophils 79%. His PT 11.9, INR 1.1, PTT is 30.2. His lactic acid was 3.1. Total bi lirubin 0.7, direct bilirubin 0.2, AST 11, ALT 27, alkaline phosphatase 95. His troponin is less joycelyn n 0.02. His lipase was 68. Procalcitonin was 0.05. Urinalysis is currently pending. He did have a CT scan performed of the abdomen and pelvis today on 01/23/2020, officially read by Dr. Muse as m ild wall thickening in the sigmoid colon with edematous inflammatory stranding in the adjacent fat. The patient has underlying moderate to severity diverticulosis. There was edema and inflammatory str anding that extends superiorly into the mesenteric fat. Several extraluminal air collections are pre sent. Pattern is less severe than seen on January 01 imaging. Air would not be expected to persist 3 weeks after prior event. This was suspected to be new diverticulitis. Stomach is distended by fl uid. There are several prominent small bowel loops, probably secondary to ileus. No distant free ai r. No pneumatosis. Assessment And Plan: This is a 59-year-old male, who comes in with a recurrent episode of diverticul itis with perforation. 1.IV fluid hydration and resuscitation. 2.Antibiotic coverage. The patient will be given 1 g of Invanz IV x1 followed by Zosyn 4.5 g. 3.Serial abdominal exams. 4.Blood sugar control. 5.Serial labs. 6.I have explained the risks, benefits, and alternatives of operative versus nonoperative management including the possibility of exploratory laparotomy with sigmoid colectomy, Shivam procedure and c olostomy creation should there be worsening of his symptoms. The patient agrees to proceed at this p oint with nonoperative management. Thank you for this interesting consult. RACHEL/MENDOZA Voice ID: [id number] Report ID: [id number]
[2020-01-23] MEDS ORDERED: ERTAPENEM NA 1 GM in NA CHLORIDE 0.9% 100 ML IVPB ONE (12:00)
[2020-01-23] MEDS ORDERED: D50W 25 GM/50 ML SYRINGE/VIAL IV PRN (14:33)
[2020-01-23] MEDS ORDERED: GLUCAGON 1 MG/VIAL IM PRN (14:33)
[2020-01-23] MEDS ORDERED: PIPER/TAZO/NS 4.5gm 4.5 GM/100 ML BAG IVPB SCH (14:33)
[2020-01-23] MEDS: INSULIN -REGULAR HUMAN 50 UNIT/0.5 ML ML SQ SCH ×3 (14:33→21:00)
[2020-01-23 15:13] LABS: Urine Bacteria NONE SEEN /HPF (NONE SEEN); Urine RBC NONE SEEN /HPF (NONE SEEN)
[2020-01-23 15:14] LABS: Urine Culture Reflex Order NOT NEEDED
[2020-01-23 15:25] VITALS: BMI 30.5
[2020-01-23] MEDS ORDERED: SODIUM CHLORIDE 0.9% 10ML INJ IV PRN (15:32)
[2020-01-23] MEDS: HYDROMORPHONE HCL 1 MG/ML INJ IV PRN ×2 (15:32→20:20)
[2020-01-23] MEDS: NA CHLORIDE 0.9% 1,000 ML IV SCH ×2 (15:33→22:00)
[2020-01-23 15:35] LABS: Potassium 4.4 mmol/L (3.5-5.1)
[2020-01-23] MEDS ORDERED: HYDROMORPHONE HCL 1 MG/ML INJ ONE ×2 (15:43→20:30)
[2020-01-23] MEDS ORDERED: NA CHLORIDE 0.9% 1,000 ML ONE ×2 (15:43→22:25)
[2020-01-23] MEDS: PANTOPRAZOLE 40 MG INJ IVP SCH (16:00)
[2020-01-23] MEDS: HEPARIN 5000 UNIT/ML 1 ML VIAL SQ SCH (16:13)
[2020-01-23] MEDS: PIPER/TAZO/NS 4.5gm 4.5 GM/100 ML BAG IVPB SCH (16:13)
[2020-01-23] MEDS ORDERED: HEPARIN 5000 UNIT/ML 1 ML VIAL ONE (16:22)
[2020-01-23 17:59] LABS: Urine Blood NEGATIVE (NEG); Urine Glucose NEGATIVE (NEG); Urine Protein NEGATIVE (NEG)
[2020-01-23] MEDS ORDERED: ACETAMINOPHEN 650MG/RECT SUPP PR PRN (18:59)
[2020-01-24] MEDS: HYDROMORPHONE HCL 1 MG/ML INJ IV PRN ×5 (00:08→16:20)
[2020-01-24] MEDS: PIPER/TAZO/NS 4.5gm 4.5 GM/100 ML BAG IVPB SCH ×2 (00:08→08:46)
[2020-01-24] MEDS ORDERED: HYDROMORPHONE HCL 1 MG/ML INJ ONE ×4 (00:13→16:27)
[2020-01-24] MEDS: HEPARIN 5000 UNIT/ML 1 ML VIAL SQ SCH ×2 (02:44→09:00)
[2020-01-24] MEDS ORDERED: HEPARIN 5000 UNIT/ML 1 ML VIAL ONE (02:48)
[2020-01-24 04:38] LABS: Absolute Lymphocytes (CBC) 1.3 K/uL (0.7-4.9); Basophils % 0.4 % (0-1.3); Hematocrit 39.3 % (39.6-49.0); Lymphocytes % 9.7 % (15.3-44.8); MPV 9.3 fL (7.6-11.3); RBC Red Blood Cell Count 4.57 M/uL (4.33-5.43)
[2020-01-24] MEDS ORDERED: NA CHLORIDE 0.9% 1,000 ML ONE ×2 (04:39→13:05)
[2020-01-24 04:40] LABS: Protime INR 1.21
[2020-01-24 04:52] LABS: Albumin 2.9 g/dL (3.4-5.0); Bilirubin Total 1.6 mg/dL (0.2-1.0); Magnesium 2.1 mg/dL (1.8-2.4); Protein, Total 6.6 g/dL (6.4-8.2)
[2020-01-24] MEDS: NA CHLORIDE 0.9% 1,000 ML IV SCH ×3 (05:44→12:55)
[2020-01-24] MEDS: INSULIN -REGULAR HUMAN 50 UNIT/0.5 ML ML SQ SCH ×2 (07:30→11:30)
[2020-01-24 08:18] VITALS: O2SAT 95
[2020-01-24] MEDS ORDERED: PIPER/TAZO/NS 3.375gm 0 GM/0 ML BAG ONE (08:22)
[2020-01-24] MEDS ORDERED: HYDROMORPHONE HCL 2 MG/ML inj ONE (08:22)
[2020-01-24] MEDS: PANTOPRAZOLE 40 MG INJ IVP SCH (09:00)
--- NOTE | 2020-01-24 13:19 | P.PN ---
Subjective Date of Service: 01/24/20 Chief Complaint: Acute diverticulitis with microperforation No new changes. Patient denies any abdominal pain. No flatus or bowel movements. NGT with significant bilious output. Physical Examination - Vital Signs Temperature: 99.2 F Blood Pressure: 100/65 Pulse: 80 Respirations: 16 Pulse Ox (%): 90 - Physical Exam General: Alert, In no apparent distress, Oriented x3 HEENT: Mucous membr. moist/pink Neck: Supple Respiratory: Clear to auscultation bilaterally, Normal air movement Cardiovascular: No edema Gastrointestinal: Normal bowel sounds, Tenderness (Moderate tenderness, no guarding or rebound) Musculoskeletal: No swelling, No erythema Integumentary: No rashes Neurological: Normal strength at 5/5 x4 extr Assessment And Plan Physician Review Additional Text: Acute perforated diverticulitis Severe Sepsis, Shock -blood pressure has stabilized. -sepsis resolved -free air in abdomen present, but much less compared to prior CT, unclear if truly persistent or new -patient seen by general surgery. Dr. Shoemaker recommend transfer to Dr. Taylor at a tertiary center for further management. -IV Zosyn -transferred to them medical floor with tele given resolution of hypotension -serial abdominal exams -NPO, IVF, PPI -NG tube to LIWS -accucheks, low dose SSI -pain control Chronic Back pain - NPO for now
[2020-01-24] MEDS ORDERED: PANTOPRAZOLE 40 MG INJ ONE (13:31)
[2020-01-24 13:37] VITALS: TEMP 98.9
[2020-01-24 14:57] VITALS: BP 112/64
--- NOTE | 2020-01-24 15:03 | P.DS ---
Admission Date: 01/23/20 Discharge Date: 01/24/20 Reason for Admission: Acute diverticulitis with microperforation - Problems (1) Diverticulitis of colon with perforation Current Visit: No Status: Acute (2) Leukocytosis Current Visit: No Status: Acute Brief History of Present Illness: 59-year-old recently hospitalized for diverticulitis with perforation and discharged with antibiotics, then follow up with Dr. Mckeon as outpatient presented to the emergency department again with a complaint of abdominal pain. CT abdomen and pelvis demonstrated bowel perforation. Patient was also hypotensive on arrival and had leukocytosis. He was admitted for septic shock secondary to acute diverticulitis with perforation. Hospital Course: Patient was admitted to the intensive care unit and started on aggressive antibiotic therapy-Ertapenem and Zosyn. The patient was seen and evaluated by general surgery Dr. Shoemaker. NG tube was inserted and significant bilious fluid drained. His blood pressure improved with IV hydration and antibiotics. Patient was transitioned to the medical floor. Dr. Shoemaker recommended transfer to a tertiary center for surgery given patient was already scheduled to have robotic colectomy with Dr. Rivers. Patient has been accepted for transfer. Vital signs stable for transfer. Vital Signs/Physical Exam: Temp Pulse Resp BP Pulse Ox 98.9 F 81 14 112/64 95 01/24/20 13:37 01/24/20 14:00 01/24/20 14:00 01/24/20 14:00 01/24/20 14:00 General: Alert, In no apparent distress, Oriented x3 HEENT: Mucous membr. moist/pink Neck: Supple, JVD not distended Respiratory: Clear to auscultation bilaterally, Normal air movement Cardiovascular: No edema, Regular rate/rhythm, Normal S1 S2 Gastrointestinal: Tenderness (Moderate) Musculoskeletal: No swelling, No erythema Integumentary: No rashes Neurological: Normal strength at 5/5 x4 extr Laboratory Data at Discharge: WBC 13.3 K/uL (4.3-10.9) H 01/24/20 04:14 Hgb 13.4 g/dL (13.6-17.9) L 01/24/20 04:14 Hct 39.3 % (39.6-49.0) L 01/24/20 04:14 Plt Count 210 K/uL (152-406) D 01/24/20 04:14 PT 14.2 SECONDS (9.5-12.5) H 01/24/20 04:14 INR 1.21 01/24/20 04:14 APTT 30.2 SECONDS (24.3-36.9) 01/23/20 09:13 Sodium 139 mmol/L (136-145) 01/24/20 04:14 Potassium 4.0 mmol/L (3.5-5.1) 01/24/20 04:14 BUN 16 mg/dL (7-18) 01/24/20 04:14 Creatinine 1.08 mg/dL (0.55-1.3) 01/24/20 04:14 Glucose 105 mg/dL (74-106) 01/24/20 04:14 Magnesium 2.1 mg/dL (1.8-2.4) 01/24/20 04:14 Total Bilirubin 1.6 mg/dL (0.2-1.0) H 01/24/20 04:14 AST 11 U/L (15-37) L 01/24/20 04:14 ALT 19 U/L (12-78) 01/24/20 04:14 Alkaline Phosphatase 71 U/L (45-117) 01/24/20 04:14 Amylase 54 U/L (25-115) 01/23/20 09:13 Lipase 68 U/L (73-393) L 01/23/20 09:13 Home Medications: Pantoprazole Sodium [Protonix] 40 mg PO DAILY #15 tablet. 01/08/20 Followup: Prabhu Mckeon MD [ACTIVE - CAN ADMIT] - JACKLYN RIVERS MD [OUTSIDE PHYSICIAN] - Time spent managing pt's care (in minutes): 40
--- NOTE | 2020-01-24 20:03 | EKG ---
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
--- NOTE | 2020-01-25 11:27 | CON ---
Date of Consultation: 01/24/2020 Reason For Consultation: Acute diverticulitis perforation. History Of Present Illness: This is a case of a 59-year-old patient known by us, several weeks ago t he patient was admitted to the hospital with diverticulitis with microperforation. He was in plan to continue the antibiotics, do elective colon resection if possible. He was doing good for the last f ew weeks, but day before he was eating and then suddenly developed the pain. Once again, came to the ER. Initially seen by Dr. Shoemaker. The patient understand we have been caring for the patient, he wants to take care of him, so kindly accepted just notify Dr. Shoemaker, so we evaluated the patient. The patient stated that the pain is in the left lower quadrant as before. He states some nausea and some bloating. No melena. He has not had a colonoscopy yet. He denies any dysuria, hematuria, tena tochezia, or melena. Denies any recent traveling out of the country. Denies any family member sick at home. Review of Systems: Ten points otherwise unremarkable. Allergies: NONE. Family History: Noncontributory. Social History: He does smoke and drink alcohol occasionally. Past Surgical History: None. Physical Examination: General: The patient is awake and alert. HEENT: Pupils are equal and reactive, anicteric. Neck: Supple. Chest: Clear. Abdomen: Soft and depressible. Left lower quadrant tenderness with guarding. Rectal: Deferred. Extremities: Good capillary refill. Imaging: CAT scan of the abdomen and pelvis done 01/23/2020 and review shows diverticulitis present with small extraluminal air present. Assessment And Plan: It is a 59-year-old patient with acute diverticulitis microperforation. He is trying conservative treatment, but he relapsed once again. So, I discussed the case with him and dis cussed the case with Dr. Shoemaker and the patient asked me to make some decision, so I called Dr. Taylor . He supposed to see him tomorrow in his clinic. Obviously, the relapsing allow that to happen, so I called Dr. Taylor in [place], he is a Colorectal Surgeon and he is going to be in charge of him. Aft er discussing the details of the lab, details of the CAT scan, there was a decided even with the [facility] ent this patient there and they will see if they can do this surgery. Although, may requi re the same things as he may require which is a colostomy. They will try to see if they can colon do wn and then during this admission just go ahead and do the colon resection. Trying to minimize the c nayeli of colostomy. The patient did agree and is happy with that. So, I did the arrangements and I call also a service there and we were able to this patient now and the patient is very hap py. He understands that the benefits, alternatives, and risks of surgical intervention, since was ex plained to him once again. MICHELLE/MENDOZA Voice ID: [id number] Report ID: [id number]
== END 2020-01-24 16:30 | disposition short-term general hospital (02) | DRG 871 ==
LOC: ER 08:51 → ERHOLD 10:48
PROVIDERS: ADMIT Hospitalist; ATTEND Internal Medicine
DX: A41.9 Sepsis, unspecified organism (principal); R65.21 Severe sepsis with septic shock; K57.20 Diverticulitis of large intestine with perforation and abscess without bleeding; E87.2 Acidosis; G89.29 Other chronic pain; M54.9 Dorsalgia, unspecified; Z87.891 Personal history of nicotine dependence; Z20.828 Contact with and (suspected) exposure to other viral communicable diseases
CPT/HCPCS: 36415; 71045; 74177; 80048; 80053; 80076; 81003; 81015; 82150; 82550; 82553; 82947; 83605; 83690; 83735; 84145; 84484; 85025; 85610; 85730; 86850; 86900; 86901; 87040; 93005; 99285; C9113; J1170; J1335; J1644; J2405; J2543; J3010; J7030; J7050; Q9967; U0003